=== PATIENT | male | born 1930 | race Caucasian/White ===

== ENCOUNTER 2017-02-16 11:33 | Inpatient (IN) ==
[2017-02-16] MEDS ORDERED: ACETAMINOPHEN 325 MG TABLET PO PRN (11:54)
[2017-02-16] MEDS ORDERED: traZODone 50 MG TABLET PO PRN (11:54)
[2017-02-16] MEDS ORDERED: DOCUSATE SODIUM 100 MG CAPSULE PO PRN (11:54)
--- NOTE | 2017-02-16 13:41 | Hospitalist History & Physical ---
Assessment and Plan (1) Coronary artery arteriosclerosis Status: Chronic Assessment and plan: Impression: 1. Possible congestive heart failure. Echocardiogram from the cardiology offices shows a normal ejection fraction and grade 2 diastolic dysfunction. It is possible that he is having an acute exacerbation of his chronic diastolic heart failure 2. Coronary disease, status post bypass grafting 3. Aortic valvular disease, status post bioprosthetic aortic valve replacement 4. Hypertension 5. Type II DM Plan: Screening lab and chest x-ray. Will consider revising diuretic dosing if the chest x-ray is compatible with CHF. Repeat cardiac catheterization and echocardiogram are probably not indicated, since he has had both of these tests less than 2 months ago. I discussed my findings and plan with the patient and his daughter. This note was completed using [employer] voice recognition software. There may be bit sharpener errors as a result. Current Visit: No History of Present Illness Chief complaint: Dyspnea of several days' duration History of present illness: Mr. Mcdonald is a 86 year old male He has a long history of hypertension and type II DM. He also has a long history of coronary disease. He underwent bypass grafting and aortic valve replacement with a bioprosthesis about 3-1/2 years ago. He has done well since then, but apparently had developed some worsening symptoms about 6 weeks ago. At that time, he underwent cardiac catheterization. He was found to have progression of his coronary disease, and occlusion of some of his bypass grafts. He was offered either redo bypass grafting or an attempt at stenting. He was quoted high risk numbers for both procedures, and chose medical management. For the past week or so, he said worsening exertional dyspnea as well as some occasional exertional chest discomfort. He has not had any nocturnal dyspnea. He has not had any nausea or vomiting. He has had a cough without any sputum production. His daughter noted a fever last night, but no fevers otherwise. The patient went to his local physician today. He was told that he might have some "fluid" in his chest, and was sent over to the hospital for further evaluation. Home Medications Medication Instructions Recorded Confirmed Type Amiodarone Tab [Cordarone Tab] 200 mg PO DAILY 05/06/15 02/16/17 History Amlodipine Besylate 1 tablet PO DAILY 05/06/15 02/16/17 History Aspirin Chew Tab 1 tablet PO DAILY 05/06/15 02/16/17 History Atorvastatin Calcium 40 mg PO DAILY 05/06/15 02/16/17 History Docusate Sodium Cap [Colace Cap] 100 mg PO BID 05/06/15 02/16/17 History Furosemide Tab [Lasix Tab] 80 mg PO BID DIURETIC 05/06/15 02/16/17 History Hydralazine HCl 25 mg PO BID 05/06/15 02/16/17 History Isosorbide Mononitrate [Imdur] 60 mg PO DAILY 05/06/15 02/16/17 History Levothyroxine Tab [Synthroid Tab] 100 mcg PO DAILY@0700 05/06/15 02/16/17 History Magnesium Oxide 400 mg PO BID 05/06/15 02/16/17 History Pantoprazole Tab [Protonix Tab] 40 mg PO DAILY 05/06/15 02/16/17 History glipiZIDE [Glucotrol] 10 mg PO BIDAC 05/06/15 02/16/17 History Insulin Glargine [Lantus] 15 unit SUBCUT BEDTIME 01/30/16 02/16/17 History Albuterol Inhaler [Proventil 2 puff INH Q6H PRN #1 inhaler 10/15/16 02/16/17 Rx Inhaler] Clopidogrel Bisulfate [Clopidogrel] 75 mg PO DAILY 01/01/17 02/16/17 History Polyethylene Glycol Powder 17 gm PO DAILY 02/16/17 02/16/17 History [Miralax] Allergies Allergy/AdvReac Type Severity Reaction Status Date / Time No Known Allergies Allergy Verified 01/30/16 11:07 Medical,Surgical,& Family Hx - Medical History Cardio: History of: CAD, Hypertension, Valvular Heart Disease (replacement) Endocrine: History of: Diabetes Mellitus (IDDM) Renal: History of: Renal Problems (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) - Surgical History Cardiac Surgeries: Sugical HX of: Cardiac Catheterization, Cardiac Surgery ( CABG Valve Replacement) Neurologic Surgeries: Patient denies: Neurologic Surgery Abdominal Surgeries: Surgical HX of: Appendectomy, Cholecystectomy - Family History Family History: Reports;: Family Diabetes, Family Heart Disease - Social History Smoking Status: Never smoker Frequency of Alcohol Use: None Type of Drug Use: None 12 point system: reviewed and no additional remarkable complaints except as stated Review of systems: Gen.: No weight loss or gain over the past year. Eyes: No glaucoma. No change in visual acuity. Ears nose and throat: No change in auditory acuity, sinus problems, nasal allergies, or sore throat. Lungs: No asthma, bronchitis, or pneumonia. Cardiac: See history of present on. GI: No liver disease, nausea, vomiting, or diarrhea. : No hematuria, UTI, or stones. He has chronic kidney disease per Neurologic: No seizures. Endocrine: Hypothyroid for several years.. Hematologic: No anemia or blood dyscrasias. Skin: No rashes or lesions. Musculoskeletal: Only age-related arthritic complaints. Exam - Constitutional Vitals: Period Temp Pulse Resp BP Sys/Lea Pulse Ox Last 24 Hr 97.5 F 50 20 116/42 91 General: He is a pleasant white man in no distress. HEENT: Pupils are round and reactive. Extraocular muscles are normal. Gaze is conjugate. Fundi were not examined. There is no nasal discharge. Mucous membranes are moist. Neck: Supple, without mass or bruit. He has neck vein distention supine. Cardiac: Rhythm is regular. The carotids are normal. He has a 3/6 systolic ejection murmur loudest at the right base and radiating into the neck. He also has a whiff of aortic regurgitation. Peripheral pulses are intact. Lungs: He has decreased breath sounds in both bases with rales in the right base. Abdomen: Soft and nontender. Bowel sounds are present. No mass palpable. Several well-healed scars Rectal: Not done. Extremities: No cyanosis, clubbing, or edema. Skin: No significant rash or lesion. Neurologic: He is awake and alert. He moves all 4 extremities. Cranial nerves appear to be intact. No pathologic reflexes are elicited.
[2017-02-16] MEDS ORDERED: ALBUTEROL 2.5 MG/3 ML NEB RESP TX PRN (13:46)
[2017-02-16] MEDS ORDERED: DEXTROSE 50% 25 GM/50 ML VIAL IV PRN (13:50)
[2017-02-16] MEDS ORDERED: GLUCAGON 1 MG VIAL IM PRN (13:50)
[2017-02-16 14:19] LABS: Basophils % 0.2 % (0.0-0.8); Hematocrit 36.7 VOL% (42.0-52.0); Hemoglobin 11.4 GM/DL (14.0-18.0); Immature Granulocytes % 0.5 %; Immature Granulocytes Absolute 0.05 #; Lymphocytes # 2.8 10*3/uL (1.4-4.0); Lymphocytes % 25.3 % (21.2-54.2); Mean Corpuscular HGB Conc 31.1 GM/DL (32-36); Mean Corpuscular Hemoglobin 28 PG (27-34); Mean Corpuscular Volume 90.4 FL (87-102); Mean Platelet Volume 11.5 FL (9.6-12.0); Monocytes # 0.7 10*3/uL (0.11-0.8); Monocytes % 5.9 % (1.7-12.7); Neutrophils # 7.6 10*3/uL (1.4-7.4); Neutrophils % 68.1 % (38.7-73.9); Platelet Count 155 T/CUMM (130-400); Red Blood Count 4.06 MC/CUMM (3.8-5.5); Red Cell Distribution Width 14.1 % (9.3-17.3); White Blood Count 11.1 T/CUMM (4-12)
[2017-02-16 14:54] LABS: Albumin 3.1 G/DL (3.4-5.0); Bilirubin,Total 0.7 MG/DL (0.2-1.0); Calcium 8.5 MG/DL (8.5-10.1); Magnesium 2.5 MG/DL (1.8-2.4); Osmolality,Calculated 294.4 MOS/KG (273-304); Potassium 4.3 MMOL/L (3.5-5.1); Risk Ratio 3.26; Thyroid Stimulating Hormone 1.95 uIU/ml (0.358-3.74); Total Protein 6.3 G/DL (6.4-8.3)
[2017-02-16 15:09] LABS: Apearance,Urine CLEAR (Clear); Bilirubin,Urine Negative (Negative); Blood, Urine Negative (Negative); Glucose,Urine (UA) Negative (Negative); Hyaline Casts,Urine 5 /LPF (0-3); Ketones,Urine Negative (Negative); Mucus,Urine Occasional /LPF (Occasional); Nitrite,Urine Negative (Negative); Protein,Urine Negative; RBC,Urine <1 /HPF (0-4); Urine Color Yellow (Yellow); Urine Specific Gravity 1.016 (1.001-1.035); Urine Urobilinogen < 2.0 EU/DL (0.2-1.0); WBC,Urine <1 /HPF (0-6)
--- NOTE | 2017-02-16 15:45 | XRay Report ---
Exam: Chest 2 views Date: February 16, 2017 at 3:23 PM Comparison: Chest one view portable January 02, 2017 Reason: Dyspnea/shortness of breath Findings: The cardiac silhouette is again enlarged, and the patient is status post sternotomy with valve replacement. There is persistent elevation of the left hemidiaphragm and air within the splenic flexure. Minimal atelectasis is seen at the left lung base, and there is chronic blunting of the left costophrenic angle. Emphysema is also suspected, and there may be minimal atelectasis within the right midlung zone. No pneumothorax is identified. The osseous structures appear stable. Impression: 1. Cardiomegaly. 2. There is persistent elevation of the left hemidiaphragm and minimal atelectasis at the left lung base. There is also chronic blunting of the left costophrenic angle, and emphysema is suspected. There may be minimal atelectasis within the right midlung zone. PROCEDURE INTERPRETED AT [facility] DEPARTMENT OF RADIOLOGY Final Report Signed by: Dr. Mj Farias
[2017-02-16] MEDS ORDERED: FUROSEMIDE 80 MG TABLET PO SCH (16:00)
[2017-02-16] MEDS: INSULIN REGULAR 100 UNIT/ML SUBCUT SCH ×2 (16:33→21:39)
[2017-02-16] MEDS: glipiZIDE 10 MG TABLET PO SCH (16:34)
[2017-02-16] MEDS: FUROSEMIDE 40 MG/4 ML VIAL IV SCH (16:34)
[2017-02-16] MEDS: INSULIN GLARGINE 100 UNIT/ML SUBCUT SCH (21:39)
[2017-02-16] MEDS: DOCUSATE SODIUM 100 MG CAPSULE PO SCH (21:39)
[2017-02-16] MEDS: hydrALAZINE 25 MG TABLET PO SCH (21:39)
[2017-02-16] MEDS: MAGNESIUM OXIDE 400 MG TABLET PO SCH (21:39)
[2017-02-17] MEDS: LEVOTHYROXINE 100 MCG TABLET PO SCH (06:09)
[2017-02-17 06:53] LABS: Calcium 8.7 MG/DL (8.5-10.1); Potassium 3.7 MMOL/L (3.5-5.1)
[2017-02-17] MEDS: INSULIN REGULAR 100 UNIT/ML SUBCUT SCH ×4 (08:22→20:33)
[2017-02-17] MEDS ORDERED: FUROSEMIDE 100 MG/10 ML VIAL ONE (08:37)
[2017-02-17] MEDS: FUROSEMIDE 40 MG/4 ML VIAL IV SCH ×2 (09:14→16:54)
[2017-02-17] MEDS: CLOPIDOGREL 75 MG TABLET PO SCH (09:16)
[2017-02-17] MEDS: hydrALAZINE 25 MG TABLET PO SCH ×2 (09:16→20:33)
[2017-02-17] MEDS: PANTOPRAZOLE 40 MG TABLET PO SCH ×2 (09:16→09:20)
[2017-02-17] MEDS: ASPIRIN CHEW 81 MG TABLET PO SCH (09:16)
[2017-02-17] MEDS: ATORVASTATIN 40 MG TABLET PO SCH (09:16)
[2017-02-17] MEDS: ISOSORBIDE MONONITRATE 60 MG TABLET PO SCH (09:16)
[2017-02-17] MEDS: glipiZIDE 10 MG TABLET PO SCH ×2 (09:16→16:54)
[2017-02-17] MEDS: amLODIPine 10 MG TABLET PO SCH (09:17)
[2017-02-17] MEDS: DOCUSATE SODIUM 100 MG CAPSULE PO SCH ×2 (09:17→20:33)
[2017-02-17] MEDS: POLYETHYLENE GLYCOL POWDER 17 GM PACK PO SCH (09:17)
[2017-02-17] MEDS: MAGNESIUM OXIDE 400 MG TABLET PO SCH ×2 (09:17→20:34)
--- NOTE | 2017-02-17 10:05 | Hospitalist Progress Note ---
Assessment and Plan (1) Coronary artery arteriosclerosis Status: Chronic Assessment and plan: Impression: 1. Acute on chronic diastolic congestive heart failure 2. Coronary disease, status post bypass grafting 3. Aortic valvular disease, status post bioprosthetic aortic valve replacement 4. Hypertension 5. Type II DM Plan: Continue diuresis. Recheck chest x-ray in the morning This note was completed using [employer] voice recognition software. There may be v/stol landing signal officer errors as a result. Current Visit: No Hospitalist: Subjective Interval history: Follow-up acute diastolic congestive heart failure. The patient says that his dyspnea has improved following the institution of IV diuretics. He requested a [place] catheter and we discussed the possibility of a catheter associated urinary infection. He is apparently taking his diuretics twice daily at home. His chest x-ray showed a little pulmonary vascular congestion, and his BNP was slightly elevated. He continues with orthopnea. Exam - Constitutional Vitals: Period Temp Pulse Resp BP Sys/Lea Pulse Ox Last 24 Hr 97.5 F-99.3 F 50-74 20-21 116-167/42-67 90-99 Vital signs are noted above. Heart is regular with a 3/6 systolic ejection murmur and no gallop. Has a few rales in the chest. His lungs sound clearer than yesterday. Abdomen is soft and nontender. There is a millimeter of peripheral edema. He is awake and alert Results - Labs CBC & BMP: 02/16/17 13:59 02/17/17 05:49 Lab Results: I have reviewed the past 24 hour labs (Kidney function has improved )
[2017-02-17] MEDS: AMIODARONE 200 MG TABLET PO SCH (11:59)
[2017-02-17] MEDS: INSULIN GLARGINE 100 UNIT/ML SUBCUT SCH (20:33)
[2017-02-18] MEDS: LEVOTHYROXINE 100 MCG TABLET PO SCH (05:59)
[2017-02-18 07:30] LABS: Calcium 8.1 MG/DL (8.5-10.1); Osmolality,Calculated 293.7 MOS/KG (273-304); Potassium 3.9 MMOL/L (3.5-5.1)
[2017-02-18] MEDS: ATORVASTATIN 40 MG TABLET PO SCH (08:44)
[2017-02-18] MEDS: FUROSEMIDE 40 MG/4 ML VIAL IV SCH ×2 (08:44→17:11)
[2017-02-18] MEDS: amLODIPine 10 MG TABLET PO SCH (08:45)
[2017-02-18] MEDS: CLOPIDOGREL 75 MG TABLET PO SCH (08:45)
[2017-02-18] MEDS: ASPIRIN CHEW 81 MG TABLET PO SCH (08:45)
[2017-02-18] MEDS: hydrALAZINE 25 MG TABLET PO SCH ×2 (08:45→20:51)
[2017-02-18] MEDS: DOCUSATE SODIUM 100 MG CAPSULE PO SCH ×2 (08:45→20:51)
[2017-02-18] MEDS: ISOSORBIDE MONONITRATE 60 MG TABLET PO SCH (08:45)
[2017-02-18] MEDS: AMIODARONE 200 MG TABLET PO SCH (08:45)
[2017-02-18] MEDS: INSULIN REGULAR 100 UNIT/ML SUBCUT SCH ×4 (08:46→20:52)
[2017-02-18] MEDS: glipiZIDE 10 MG TABLET PO SCH ×2 (08:46→17:11)
[2017-02-18] MEDS: MAGNESIUM OXIDE 400 MG TABLET PO SCH ×2 (08:47→20:52)
[2017-02-18] MEDS: PANTOPRAZOLE 40 MG TABLET PO SCH ×2 (08:47→08:48)
[2017-02-18] MEDS: POLYETHYLENE GLYCOL POWDER 17 GM PACK PO SCH (08:48)
--- NOTE | 2017-02-18 10:31 | XRay Report ---
Exam: Chest 2 views Date: February 18, 2017 at 7:01 AM Comparison: Chest 2 views February 16, 2017 Reason: Cough Findings: The cardiac silhouette is again enlarged, and the patient is status post sternotomy with valve replacement. There is persistent mild elevation of the left hemidiaphragm, and emphysema is suspected. There are minimal scattered opacities within both lower lung zones. This likely represents atelectasis. No pneumothorax is identified, but there is minimal bilateral pleural fluid. The osseous structures appear stable. Impression: There is minimal right pleural fluid today. The study is otherwise similar to before. PROCEDURE INTERPRETED AT [facility] DEPARTMENT OF RADIOLOGY Final Report Signed by: Dr. Mj Farias
--- NOTE | 2017-02-18 11:23 | Hospitalist Progress Note ---
Assessment and Plan (1) Coronary artery arteriosclerosis Status: Chronic Assessment and plan: Impression: 1. Acute on chronic diastolic congestive heart failure 2. Coronary disease, status post bypass grafting 3. Aortic valvular disease, status post bioprosthetic aortic valve replacement 4. Hypertension 5. Type II DM Plan: Continue diuresis. Recheck lab in the morning. This note was completed using [employer] voice recognition software. There may be agile business analyst errors as a result. Current Visit: No Hospitalist: Subjective Interval history: Follow-up acute on chronic diastolic congestive heart failure, aortic valve disease, type II DM, and coronary disease. The patient thinks that his dyspnea may be a little better. He says that he is not urinating as much after a couple of days of IV Lasix. He complains of not being able to sleep, but this is primarily due to the fact that the hospital bed is not comfortable for him. I reviewed his chest x-rays and old chest CT with radiology. He does not have any evidence of interstitial lung disease either on his chest x-rays or on the CT from 2 years ago. The chest x-rays show pleural fluid, and some reticular pattern suggestive of vascular congestion. He also has significant emphysema in the upper half of both lung campbell on the plain films and the old CT. Exam - Constitutional Vitals: Period Temp Pulse Resp BP Sys/Lea Pulse Ox Last 24 Hr 97.2 F-98.4 F 55-68 18-20 101-122/47-60 92-97 Vital signs are noted above. Heart is regular with a 2/6 systolic ejection murmur. He has a few scattered rales in both lung bases. There are no wheezes. Abdomen is soft with no mass or tenderness. He does not have peripheral edema. He is awake and alert. Results - Labs CBC & BMP: 02/16/17 13:59 02/18/17 05:02 Lab Results: I have reviewed the past 24 hour labs (Kidney function is stable)
[2017-02-18] MEDS: INSULIN GLARGINE 100 UNIT/ML SUBCUT SCH (20:51)
[2017-02-19] MEDS: LEVOTHYROXINE 100 MCG TABLET PO SCH (06:04)
[2017-02-19 07:12] LABS: Calcium 8.4 MG/DL (8.5-10.1); Osmolality,Calculated 297.7 MOS/KG (273-304); Potassium 4.5 MMOL/L (3.5-5.1)
--- NOTE | 2017-02-19 07:44 | Physician Query Form ---
CLICK EDIT DOCUMENT TO SELECT QUERY ANSWER --> OK --> SIGN Alice Simon RN, CCDS Certified Clinical Appraiser [employer] W) [phone] (f) [phone] [email or web address] PROVIDERS: Make your selection(s) from the choices in EACH section by typing an "x" and enter comments in the comment section. Please use your independent medical judgment in providing your response. This request does not imply that any particular answer is desired or expected. CLINICAL INDICATORS: (Providers should not edit this section) The medical record indicates that the patient was admitted with CHF, creatinine of 2.30 on the admission that is 2.20 on the 8th, GFR of 30 on admission that is 32 on the 8th, and the patient is on Lasix for the CHF. Clarify which of the following most accurately represents the patient's renal status: ( ) Acute kidney injury (non-traumatic) ( ) Acute renal failure ( ) Acute renal failure with underlying Chronic Kidney Disease (CKD) - please provide stage below ( ) Acute renal failure with pathological renal lesion ( ) Acute renal failure with necrosis ( ) tubular ( ) medullary ( ) cortical (x ) CKD - please provide stage below ( ) End Stage Renal Disease ( ) Acute interstitial nephritis ( ) Hepatorenal syndrome ( ) Other, please specify: ( ) Clinically unable to determine Chronic Kidney Disease Stages Source: National Kidney Disease Foundation ( ) Stage I (eGFR > or = 90) ( ) Stage II (eGFR 60 - 89) (x) Stage III (eGFR 30 - 59) ( ) Stage IV (eGFR 15 - 29) ( ) Stage V (eGFR < 15 or dialysis) COMMENTS: Use of terms such as suspected, likely, or probable (associated with a specific diagnosis that is being evaluated, monitored, or treated as if it exists) are acceptable and can be restated in the discharge summary if not ruled out. MTDD
[2017-02-19] MEDS: glipiZIDE 10 MG TABLET PO SCH (07:51)
[2017-02-19] MEDS: FUROSEMIDE 40 MG/4 ML VIAL IV SCH (07:52)
[2017-02-19] MEDS: POLYETHYLENE GLYCOL POWDER 17 GM PACK PO SCH (07:59)
[2017-02-19] MEDS: amLODIPine 10 MG TABLET PO SCH (08:00)
[2017-02-19] MEDS: ISOSORBIDE MONONITRATE 60 MG TABLET PO SCH (08:00)
[2017-02-19] MEDS: hydrALAZINE 25 MG TABLET PO SCH (08:00)
[2017-02-19] MEDS: PANTOPRAZOLE 40 MG TABLET PO SCH (08:00)
[2017-02-19] MEDS: AMIODARONE 200 MG TABLET PO SCH (08:00)
[2017-02-19] MEDS: CLOPIDOGREL 75 MG TABLET PO SCH (08:02)
[2017-02-19] MEDS: MAGNESIUM OXIDE 400 MG TABLET PO SCH (08:02)
[2017-02-19] MEDS: ATORVASTATIN 40 MG TABLET PO SCH (08:02)
[2017-02-19] MEDS: DOCUSATE SODIUM 100 MG CAPSULE PO SCH (08:02)
[2017-02-19] MEDS: ASPIRIN CHEW 81 MG TABLET PO SCH (08:02)
[2017-02-19] MEDS: INSULIN REGULAR 100 UNIT/ML SUBCUT SCH ×2 (09:09→11:46)
[2017-02-19 12:18] VITALS: BP 102/59
--- NOTE | 2017-02-19 14:16 | Discharge Summary ---
Hospital Course - Hospital Course Hospital Course: Mr. Mcdonald was admitted for management of acute exacerbation of congestive heart failure. He was initiated on furosemide 80 mg IV twice daily. Serial chest x-rays revealed improving exam. Patient improved on this treatment and return to baseline. By discharge he had met maximum benefit of hospitalization. I spent 36 minutes coordinating this discharge. I advised the patient to follow-up with his circular knitter and switching operator at discharge. - Time spent with patient Time with patient DS: Greater than 30 minutes Discharge Plan - Discharge Data Disposition: Disch To Home/Self Care Condition at Discharge: Stable Discharge Diet: advance to your usual diet Activity: resume usual activities as tolerated Hygiene: no restrictions - Discharge Medications Continue Hydralazine HCl 25 mg PO BID Docusate Sodium Cap [Colace Cap] 100 mg PO BID Amiodarone Tab [Cordarone Tab] 200 mg PO DAILY glipiZIDE [Glucotrol] 10 mg PO BIDAC Furosemide Tab [Lasix Tab] 80 mg PO BID DIURETIC Magnesium Oxide 400 mg PO BID Atorvastatin Calcium 40 mg PO DAILY Isosorbide Mononitrate [Imdur] 60 mg PO DAILY Amlodipine Besylate 1 tablet PO DAILY Pantoprazole Tab [Protonix Tab] 40 mg PO DAILY Levothyroxine Tab [Synthroid Tab] 100 mcg PO DAILY@0700 Aspirin Chew Tab 1 tablet PO DAILY Insulin Glargine [Lantus] 15 unit SUBCUT BEDTIME Albuterol Inhaler [Proventil Inhaler] 2 puff INH Q6H PRN #1 inhaler PRN Reason: Shortness Of Breath/Wheezing Clopidogrel Bisulfate [Clopidogrel] 75 mg PO DAILY Polyethylene Glycol Powder [Miralax] 17 gm PO DAILY - Follow Up or Referral Follow Up: Xiomara Ceballos DO [Primary Care Provider] - 1 Week Will Verde MD [Physician] - 1 Month - Forms/Instructions Exam - Constitutional Vitals: Period Temp Pulse Resp BP Sys/Lea Pulse Ox Last 24 Hr 97.0 F-98.5 F 51-65 18-20 102-125/38-60 90-100 General appearance: normal weight, no acute distress - Head Head exam: Present: normal inspection, normocephalic, atraumatic - Eye Eye exam: Present: EOMI Pupils: Present: MILAGROS - ENT ENT exam: Present: normal exam - Neck Neck exam: Present: normal inspection - Respiratory Respiratory exam: Present: clear to auscultation bilaterally. Absent: accessory muscle use, prolonged expiratory phase, wheezes - Cardiovascular Cardiovascular exam: Present: regular rate and rhythm. Absent: bradycardia, irregular rhythm, systolic murmur - GI/Abdominal GI/Abdominal exam: Present: normal bowel sounds. Absent: ascites, distended, hypoactive bowel sounds, tenderness - Extremities Exam Extremities exam: Present: normal inspection, edema (trace edema lower extremities bilaterally) Discharge Results Labs on day of discharge: Labs from last 24 hours 02/19/17 02/19/17 02/19/17 10:48 07:14 04:45 Sodium 145 Potassium 4.5 Chloride 104 Carbon Dioxide 33 H Anion Gap 12.5 BUN 41 H Creatinine 2.20 H GFR Calculation 32 BUN/Creatinine Ratio 18.00 Glucose 91 POC Glucose 182 H 64 L Calculated Osmolality 297.7 Calcium 8.4 L 02/18/17 02/18/17 02/17/17 20:09 18:09 16:08 Sodium Potassium Chloride Carbon Dioxide Anion Gap BUN Creatinine GFR Calculation BUN/Creatinine Ratio Glucose POC Glucose 177 H 103 181 H Calculated Osmolality Calcium DS: Provider Date of admission: 02/16/17 12:03 Primary care physician: Xiomara Ceballos DO Attending physician on admission: Avery Edwards MD Consults: 02/16/17 12:57 Consult to Pastoral Services [CONS] Routine Comment: Pastoral Screen: Request Seamless Tube Mill Operator Visit Pastoral Screen Source of Request: Patient 02/16/17 15:34 Consult to Pharmacy [CONS] Routine Reason for Pharmacy Consult: Adjust Meds Renal Funct Discharging clinician: Gena Tineo MD Expected date of discharge: 02/19/17
== END 2017-02-19 15:35 | disposition home or self-care (01) | DRG 291 ==
LOC: N.2E 12:03 → SUATTDRO 12:03
PROVIDERS: ADMIT Internal Medicine Geriatric Medicine; ATTEND Internal Medicine

== ENCOUNTER 2017-03-02 07:52 | Inpatient (IN) ==
[2017-03-02] MEDS ORDERED: SODIUM BICARB INJ 50 MEQ in SODIUM CHLORIDE 0.45% 1,000 ML IV SCH (09:00)
[2017-03-02 09:46] LABS: Calcium 8.4 MG/DL (8.5-10.1); Osmolality,Calculated 296.3 MOS/KG (273-304); Potassium 4.4 MMOL/L (3.5-5.1)
--- NOTE | 2017-03-02 09:51 | EKG Report ---
Stationary ECG Study [facility] Test Date: 03/02/2017 9:51:23 AM Pat Name: SHARRI PETIT Department: Room: Gender: M Prize Coordinator: : [id number] Requested by: Christina Kimble Order Number: [id number] Reading MD: TONY CALDERA Intervals Placida Rate: 47 P: 999 OK: 99 QRS: 73 QRSD: 104 T: 120 QT: 314 QTc: 279 Interpretive Statements SINUS BRADYCARDIA Electronically Signed On 03-02-17 17:28:11 CDT by TONY CALDERA [email or web address]
[2017-03-02 10:08] LABS: Basophils # 0.1 10*3/uL (0.0-0.2); Basophils % 0.5 % (0.0-0.8); Eosinophils # 0.1 10*3/uL (0.0-0.87); Eosinophils % 0.8 % (0.00-10.9); Hematocrit 33.8 VOL% (42.0-52.0); Hemoglobin 10.7 GM/DL (14.0-18.0); Immature Granulocytes % 0.3 %; Immature Granulocytes Absolute 0.03 #; Lymphocytes # 2.9 10*3/uL (1.4-4.0); Lymphocytes % 29.4 % (21.2-54.2); Mean Corpuscular HGB Conc 31.7 GM/DL (32-36); Mean Corpuscular Hemoglobin 28 PG (27-34); Mean Corpuscular Volume 88.7 FL (87-102); Mean Platelet Volume 10.1 FL (9.6-12.0); Monocytes # 0.6 10*3/uL (0.11-0.8); Monocytes % 6.4 % (1.7-12.7); Neutrophils # 6.2 10*3/uL (1.4-7.4); Neutrophils % 62.6 % (38.7-73.9); Platelet Count 270 T/CUMM (130-400); Red Blood Count 3.81 MC/CUMM (3.8-5.5); White Blood Count 9.9 T/CUMM (4-12)
[2017-03-02] MEDS ORDERED: DIAZEPAM 5 MG TABLET PO ONE (12:00)
[2017-03-02] MEDS ORDERED: SODIUM ACETATE IV SCH (12:00)
[2017-03-02] MEDS ORDERED: diphenhydrAMINE CAP 25 MG CAPSULE PO ONE (12:00)
[2017-03-02] MEDS ORDERED: SODIUM CHLORIDE 0.9% IV SCH (12:00)
--- NOTE | 2017-03-02 12:36 | History and Physical Update ---
Sedation H&P Update - History and Physical H&P was reviewed, the patient examined and there: are no changes in the patients condition since last H&P was completed. - Dictation Physical: refer to scanned H&P - Physical Exam Mental Status: alert and oriented Heart: regular rate and rhythm Lung: clear to auscultation Abdomen: within normal limits Vitals: within normal limits - Sedation Plan for Sedation: moderate Patient Consent: Procedure disscussed with patient and patinet has consented., Risks and benefits were discussed with patient,including infection,, bleeding, injury to surrounding structures, seizure, temporary nerve, Patient understands and accepts potential risks/benefits and agrees to, proceed. ASA Class: IV Airway Assessment: Class II: Soft palate, uvula, fauces visible
[2017-03-02] MEDS ORDERED: HEPARIN 5,000 UNIT/1 ML VIAL ONE ×4 (14:11→17:26)
[2017-03-02] MEDS ORDERED: HEPARIN/NACL 0.9% 2 UNITS/ML 1,000 ML IV ONE (14:11)
[2017-03-02] MEDS ORDERED: LIDOCAINE 1% 20 ML VIAL ONE (14:11)
[2017-03-02] MEDS ORDERED: DIAZEPAM 5 MG TABLET ONE (14:31)
[2017-03-02] MEDS ORDERED: diphenhydrAMINE CAP 25 MG CAPSULE ONE (14:31)
[2017-03-02] MEDS ORDERED: HEPARIN/NACL 0.9% 2 UNITS/ML 500 ML IV ONE ×3 (14:32→16:56)
[2017-03-02] MEDS: SODIUM CHLORIDE 0.45% 1,000 ML IV SCH (14:33)
[2017-03-02] MEDS ORDERED: fentaNYL 100 MCG/2 ML VIAL ONE (14:42)
[2017-03-02] MEDS ORDERED: MIDAZOLAM 2 MG/2 ML VIAL ONE ×3 (14:42→17:16)
[2017-03-02] MEDS ORDERED: NITROGLYCERIN DRIP 50 MG/250 ML BOTTLE IV ONE (16:29)
[2017-03-02] MEDS ORDERED: CLOPIDOGREL 300 MG TABLET ONE (17:48)
[2017-03-02] MEDS ORDERED: ceFAZolin 1,000 MG VIAL ONE (17:49)
[2017-03-02] MEDS ORDERED: FUROSEMIDE 40 MG/4 ML VIAL ONE (17:58)
[2017-03-02] MEDS ORDERED: ACETAMINOPHEN 325 MG TABLET PO PRN (17:59)
[2017-03-02] MEDS ORDERED: FUROSEMIDE 40 MG/4 ML VIAL IV ONE (17:59)
[2017-03-02] MEDS ORDERED: MORPHINE 2 MG/1 ML SYRINGE IV PRN (17:59)
[2017-03-02] MEDS ORDERED: CLOPIDOGREL 300 MG TABLET PO ONE (17:59)
[2017-03-02] MEDS ORDERED: NITROGLYCERIN SL 0.4 MG TABLET SL PRN (18:04)
[2017-03-02] MEDS ORDERED: ALBUTEROL 0.63 MG/3 ML NEB RESP TX PRN (18:08)
--- NOTE | 2017-03-02 18:19 | Cardiac Catheterization ---
Date of Procedure:: 03/02/17 Pre-op Diagnosis: Critical left main, ostial and mid LAD, ostial ramus intermedius and ostial left circumflex and mid left circumflex stenoses ( declined for coronary bypass grafting because of STS risk). Planned facilitated PCI with orbital atherectomy. Post-op diagnosis: same (Successful PCI of the left main, ostial LAD, proximal LAD, ostial ramus intermedius, ostial left circumflex and mid left circumflex O (tandem lesions) Procedure: Procedures: 1. Right heart catheterization with resting hemodynamics 2. Left heart catheterization with resting hemodynamics 3. Right femoral iliac angiography 4. Left femoral iliac angiography 5. Orbital atherectomy of the left main, left anterior descending artery, and left circumflex coronary artery 6. Temporary pacemaker placement both placement and removal 7. Facilitated PCI with Impella ventricular support both placement and removal 8. Percutaneous coronary intervention with drug-eluting stents of the proximal and LAD and percutaneous coronary mention of the ostial LAD 9. Percutaneous coronary intervention of the ostial ramus intermedius with drug -eluting stent 10. Percutaneous coronary mention of the ostial and proximal left circumflex with drug-eluting stent 11. Closure of large bore left femoral artery with Perclose in the pre-close fashion 12. Closure right femoral arteriotomy with large bore Angio-Seal closure device After signed informed consent was taken from the patient and his daughter and extensive lengthy discussion both in the hospital in the office and again in admission the patient was preadmitted for his renal insufficiency and hydration with facilitated angioplasty high risk of these vessels as described above. He was placed on the cardiac catheterization table. Dr. Ra Bangura was present for the entire procedure assisting me as spiral machine operator in this procedure. He was present for the entire procedure for technical assistance and decision making. The patient was placed on a cardiac catheterization table and prior prep for bilateral femoral access. Modified Seldinger technique was utilized to access the right femoral artery a small skin incision was made 8 St Helenian sheath was placed over the wire the sheath was aspirated and flushed at this time Seldinger technique was utilized to obtain access to the right femoral vein 7 St Helenian sheath was placed over the wire the sheath was aspirated and flushed. At this time a JR4 diagnostic catheter was advanced to the central aorta and pullback for selective cannulization of the left iliac artery. Left more iliac angiography performed for landmarks and access verification for large-bore access to the left femoral artery. Modified Seldinger technique was utilized to obtain access to the right femoral artery and a long 035 J-wire was advanced in the central aorta under fluoroscopy. At this time in the pre-close technique to Perclose devices were deployed 90 juxtaposed each other. At this time sequential dilation was performed of the vessel and a long Cook sheath (14 St Helenian) was placed over the stiff 035 J-wire. While waiting for the ACT to be verified a right heart cath was performed with wedge pressure RV and RA and PA pressure meds as below. At this time unsuccessfully and AL-1 was advanced and attempts to cross the aortic valve were unsuccessful. It was exchanged for the previously used JR4 catheter and using exchange length straight tip wire the valve was crossed. Catheter was removed wire was left in the ventricle and the pigtail catheter was advanced to the apex. The patient experienced a significant amount of ectopy. Pressure measurements were performed. At this time the stiff 0.018 Impella wire was advanced to the apex the pigtail catheter was removed and the Impella CP device was placed at the apex monitoring in standard fashion and initiation of the device occurred. 8000 units of heparin had been given once all access is been obtained before the Impala was advanced to document that the ACT was greater than 250. A CTs were checked periodically throughout the case and different boluses of heparin heparin were given please see the Log for details. The patient was stable the Impala device was pumping approximately 2.1 L/min and very stable. At this time an EBU 3.58 St Helenian guiding catheter advanced over the wire and central aorta the left main coronary was selectively engaged in to set up images were obtained. Special attention was given for contrast conservation because of renal insufficiency. At this time an exchange length pro-water wire was advanced into the distal LAD then was exchanged using a Turnpike catheter for the Viper wire. Once the via the wire was in place the CSI orbital atherectomy device was used to make multiple passes in the left main ostial and proximal LAD. There was dramatic improvement in flow to this vessel. The viper wire and CSI device were removed. At this time attention was turned to the left circumflex the previously use exchange length pro-water wire was advanced into the distal left circumflex and then changed out using the Turnpike catheter for the previously used Viper wire. Before the dominant left circumflex had orbital atherectomy a temporary transvenous pacemaker was placed. Multiple passes in the LAD left main proximal left circumflex and mid left circumflex were performed at low speed. At no time was high-speed orbital atherectomy used. There was a small dissection in the proximal left circumflex. The CSI device was removed the wire was left in place and using the Turnpike catheter the Viper wire was again exchanged for the long pro- water. At this time a short pro-water wire was advanced into the distal LAD and a [place] Blue wire was advanced into the distal ramus intermedius. Once all 3 vessels were accessed with these 3 wires attention was turned to percutaneous intervention and stent placement. A 2.5 x 12 mm [place] balloon was used to inflate the lesion in the mid LAD it was removed and then this area was just ended with a 3.0 x 15 mm Xience Alpine stent. It was postdilated to 12 teodora with a 3 oh by 12 NC Quantum apex. The balloon was removed. Attention was then turned to the left circumflex. The previously used 2.5 x 12 mm [place] balloon was used to make 3 inflations in the ostial and proximal left circumflex. Multiple attempts to pass a 2.5 x 33 mm Xience Alpine were unsuccessful. The area in the mid left circumflex was again aggressively dilated and ultimately the stent passed with ease. It was deployed at 10 teodora. The stent balloon was removed. Attention was turned to the ramus intermedius and the LAD ostia. A SKS technique to 2.5 x 15 mm Xience Alpine drug-eluting stents were deployed in the ostia of each of these vessels reaching the left main vault. The stent balloon was removed and both vessels were then postdilated to 12 teodora with comparable NC balloons. The NC balloons were removed at this time a Xience Alpine 4.0 x 8 mm stent was advanced over the she on blue wire that was in the ramus intermedius. Both the left circumflex and LAD wires were removed. The stent was then placed near the ostium of the leg all stents leaving a small area uncovered. This trouser technique was felt to be the best given the morphology of the trifurcating lesion. The stent was deployed appear to have excellent size with good coverage of the ostium of the LAD and some stent hanging back into the aorta. The decision was made not to post dilate this because of the significant upturn in size. Again for contrast conservation limited images were obtained however to additional images without the wires were obtained to verify no apparent distal vessel complication. The Impala device was weaned rapidly the temporary transvenous pacemaker was removed from the right ventricle and the EBU guide was exchanged over the wire the sheath was aspirated and flushed. Right femoral iliac angiography performed appear to be amenable for closure. Once we were below P2 on the Impala device the device was removed. Manual compression was used and the 2 previously placed Perclose devices were used to close the arteriotomy successfully with good hemostasis. At this time the previously used JR4 was advanced over the wire to the bifurcation aorta and the left femoral iliac angiography were performed show good hemostasis and ALEXSANDER-3 flow in the vessel. This catheter was removed the sheath was aspirated and flushed and 8 St Helenian Angio-Seal was deployed in the right femoral artery. Manual compression was used for hemostasis of the vein. The patient had received Versed and fentanyl he tolerated the procedure extremely well. Because he did reach and grab the Impella at one point during the case and the sutures were potentially contaminated he received 1 g of IV Ancef. The patient also received an additional 300 mg of clopidogrel on the background of his 75 mg daily. Total diagnostic fluoroscopy time 36.55 minutes total diagnostic fluoroscopy dose 2.5 mg total contrast exposure 150 cc of Visipaque Findings: RA pressure 24/25 PA pressure 53/25 with a mean of 34 Pulmonary capillary wedge pressure 29 Aortic pressure 147/54 LV pressure 147/16 with a end-diastolic pressure of 27 Left main this is a very heavily calcified diffusely diseased left main that is much as 80% in the distal portion involvement of the trifurcating vessels. It has ALEXSANDER II flow. Left anterior descending artery: There is ostial 90 sent with ALEXSANDER II flow pre- and ALEXSANDER-3 flow post there is a proximal very eccentric area with heavily ectasia afterwards has 90% ALEXSANDER II flow pre-and ALEXSANDER-3 flow was 0% stenosis post Ramus intermedius is a large vessel that supplies a large portion of the lateral ventricular myocardium has 80% ostial stenosis with ALEXSANDER II flow pre- PCI and ALEXSANDER-3 flow post PCI with 0% residual stenosis. The left circumflex is a dominant vessel supplying left PDA. Has ostial 90% stenosis it is very eccentric and ectatic there is 20% residual stenosis with a very small area unprotected at the ostium likely at the time of stenting with approximately 20% stenosis and ALEXSANDER-3 flow. There is a mid tandem lesions that are approximately 90% had ALEXSANDER II flow pre-and 0% residual stenosis and ALEXSANDER-3 flow post PCI Right femoral iliac arteries are tortuous but free of any significant disease Left femoral iliac arteries are slightly tortuous less so than the right but free of any significant disease. Post pre-close they are widely patent and no angiographic evidence of extravasation of contrast or significant stenosis. Assessment: 1. Triple-vessel coronary disease as described above status post adequate vascular revascularization 2. 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 Chronic renal insufficiency 5. Advanced age 6. Many other medical problems as described in the H&P (diabetes, renal insufficiency, hypothyroidism, COPD atrial flutter) Plan: 1. Monitor closely in the ICU 2. Continue gentle IV hydration the patient was wheezing slightly at the end of the case we will give some IV diuretics and place a Colindres catheter 3. Monitor closely for complications. There is significant amount of potential complications that are still possible in this high-risk patient Implants: The following Xience Alpine stents were deployed: 1. Mid LAD 3.0 x 15 mm 2. Ostial proximal and mid left circumflex 2.5 x 33 mm 3. Ostial and proximal LAD 2.5 x 15 mm 4. Ostial and proximal ramus intermedius 2.5 x 15 mm 5. Left main coronary artery 4.0 x 8 mm Anesthesia: moderate conscious sedation Surgeon / Physician: Xiomara Ceballos [employer] Skills: none Estimated blood loss: minimal Specimens: none sent Condition: other (Guarded) Disposition: ICU/CCU - Medications / Follow-up
[2017-03-02 19:38] LABS: Apearance,Urine CLEAR (Clear); Bilirubin,Urine Negative (Negative); Blood, Urine Negative (Negative); Glucose,Urine (UA) Negative (Negative); Ketones,Urine Negative (Negative); Mucus,Urine Occasional /LPF (Occasional); Nitrite,Urine Negative (Negative); Protein,Urine Negative; RBC,Urine <1 /HPF (0-4); Urine Color Straw (Yellow); Urine Specific Gravity 1.005 (1.001-1.035); Urine Urobilinogen < 2.0 EU/DL (0.2-1.0); WBC,Urine <1 /HPF (0-6)
[2017-03-02] MEDS: hydrALAZINE 25 MG TABLET PO SCH (20:08)
[2017-03-02] MEDS: MAGNESIUM OXIDE 400 MG TABLET PO SCH ×2 (20:37→20:43)
[2017-03-02] MEDS: DOCUSATE SODIUM 100 MG CAPSULE PO SCH (20:37)
[2017-03-02] MEDS: FAMOTIDINE 20 MG TABLET PO SCH (20:37)
[2017-03-03 05:39] LABS: Basophils # 0.1 10*3/uL (0.0-0.2); Basophils % 0.4 % (0.0-0.8); Eosinophils # 0.1 10*3/uL (0.0-0.87); Eosinophils % 0.7 % (0.00-10.9); Hematocrit 32.1 VOL% (42.0-52.0); Immature Granulocytes % 0.3 %; Immature Granulocytes Absolute 0.04 #; Lymphocytes # 2.7 10*3/uL (1.4-4.0); Lymphocytes % 23.2 % (21.2-54.2); Mean Corpuscular HGB Conc 31.2 GM/DL (32-36); Mean Corpuscular Hemoglobin 28 PG (27-34); Mean Corpuscular Volume 88.2 FL (87-102); Monocytes # 0.6 10*3/uL (0.11-0.8); Monocytes % 5.4 % (1.7-12.7); Neutrophils # 8.2 10*3/uL (1.4-7.4); Platelet Count 223 T/CUMM (130-400); Red Blood Count 3.64 MC/CUMM (3.8-5.5); Red Cell Distribution Width 13.8 % (9.3-17.3); White Blood Count 11.8 T/CUMM (4-12)
[2017-03-03] MEDS: SODIUM CHLORIDE 0.45% 1,000 ML IV SCH (06:07)
[2017-03-03] MEDS: LEVOTHYROXINE 100 MCG TABLET PO SCH (06:07)
[2017-03-03 06:16] LABS: Calcium 7.9 MG/DL (8.5-10.1); Osmolality,Calculated 290.1 MOS/KG (273-304); Potassium 4.3 MMOL/L (3.5-5.1)
[2017-03-03 06:19] LABS: Troponin I Only 0.441 NG/ML (0.00-0.045)
--- NOTE | 2017-03-03 07:51 | EKG Report ---
Stationary ECG Study [facility] Test Date: 03/03/2017 7:50:37 AM Pat Name: SHARRI PETIT Department: Room: 123 Gender: M Reed Dipper: : 1930 Requested by: Christina Kimble Order Number: [id number] Marc MD: FELIPE CAMPO Intervals [place] Rate: 48 P: 999 RI: 0 QRS: 76 QRSD: 100 T: 180 QT: 253 QTc: 220 Interpretive Statements AFIB ABN ST-T UNCHANGED FROM PRIOR ECG BRADYCARDIA Electronically Signed On 03-03-17 08:44:45 CDT by FELIPE CAMPO [id number]
[2017-03-03] MEDS: glipiZIDE 10 MG TABLET PO SCH ×2 (08:31→17:22)
[2017-03-03] MEDS: DOCUSATE SODIUM 100 MG CAPSULE PO SCH ×2 (08:32→20:54)
[2017-03-03] MEDS: hydrALAZINE 25 MG TABLET PO SCH ×2 (08:32→20:56)
[2017-03-03] MEDS: FUROSEMIDE 80 MG TABLET PO SCH ×2 (08:32→17:22)
[2017-03-03] MEDS: amLODIPine 10 MG TABLET PO SCH (08:32)
[2017-03-03] MEDS: ASPIRIN EC 81 MG TABLET PO SCH (08:32)
[2017-03-03] MEDS: FAMOTIDINE 20 MG TABLET PO SCH (08:32)
[2017-03-03] MEDS: CLOPIDOGREL 75 MG TABLET PO SCH (08:32)
[2017-03-03] MEDS: MAGNESIUM OXIDE 400 MG TABLET PO SCH ×2 (08:33→20:56)
[2017-03-03] MEDS: POLYETHYLENE GLYCOL POWDER 17 GM PACK PO SCH (08:33)
--- NOTE | 2017-03-03 08:54 | Cardiology Progress Note ---
Assessment and Plan (1) Coronary artery arteriosclerosis Status: Chronic Assessment and plan: Patient is stable post complicated coronary intervention. He will be transferred to the floor hopefully to be discharged tomorrow. Current Visit: No (2) Hypertension Status: Chronic Current Visit: No Cardiology - PN: Subj Interval history: 86-year-old man who underwent complex percutaneous coronary intervention yesterday. He received stents to the proximal LAD, ostial LAD, ostial ramus and circumflex as well as a stent to the left main coronary artery. His creatinine is stable. He has had minimal ooze from the right groin. His left groin where the Impella was placed looks very good. He has got good pulses. Our plan is going to transfer him to the floor today and discharge him home probably tomorrow depending on how he progresses. Exam (Progress Note) - Constitutional Vitals: Period Temp Pulse Resp BP Sys/Lea Pulse Ox Last 24 Hr 96.0 F-97.1 F 47-58 12-23 112-150/41-78 89-98 Exam: General:no acute distress. alert and oriented, mood and affect are normal HEENT: no new lesions, sclerae are clear, mouth and pharynx benign Neck: supple, trachea midline, no JVD noted Lungs: no rales ronchi or wheeze is noted. pt comfortable without accesory muscle use to assist with breathing CV: RRR no murmur rub or gallop is noted. Abd: soft and nontender, BSNA, no masses. Ext: no cyanosis, clubbing or edema. Both groin intervention sites appear to be stable without hematoma. Peripheral pulses are good. Neuro: grossly intact without focal neurologic deficit. Result/EKG - Labs CBC & BMP: 03/03/17 05:09 03/03/17 05:09 Labs: Laboratory Results - last 24 hr 03/02/17 03/02/17 03/02/17 09:04 10:00 18:14 WBC 9.9 RBC 3.81 Hgb 10.7 L Hct 33.8 L MCV 88.7 MCH 28 MCHC 31.7 L RDW 14.0 Plt Count 270 MPV 10.1 Neut % (Auto) 62.6 Lymph % (Auto) 29.4 [place] % (Auto) 6.4 Eos % (Auto) 0.8 Baso % (Auto) 0.5 Neut # (Auto) 6.2 Lymph # (Auto) 2.9 [place] # (Auto) 0.6 Eos # (Auto) 0.1 Baso # (Auto) 0.1 Immature Gran % 0.3 Nucleated RBC % 0.0 Immature Gran # 0.03 Nucleated RBCs # 0.00 Sodium 141 Potassium 4.4 Chloride 104 Carbon Dioxide 31 Anion Gap 10.4 BUN 42 H Creatinine 2.40 H GFR Calculation 28 BUN/Creatinine Ratio 17.00 Glucose 189 H POC Glucose Calculated Osmolality 296.3 Calcium 8.4 L Magnesium 3.0 H Troponin I Urine Color Straw Urine Appearance Clear Urine pH 7.0 Ur Specific [place] 1.005 Urine Protein Negative Urine Glucose (UA) Negative Urine Ketones Negative Urine Blood Negative Urine Nitrate Negative Urine Bilirubin Negative Urine Urobilinogen < 2.0 H Urine Leukocytes Negative Urine RBC <1 Urine WBC <1 Urine Mucus Occasional Ur Culture Indicated? Not indicated 03/02/17 03/03/17 03/03/17 20:03 05:09 05:09 WBC 11.8 RBC 3.64 L Hgb 10.0 L Hct 32.1 L MCV 88.2 MCH 28 MCHC 31.2 L RDW 13.8 Plt Count 223 MPV 11.0 Neut % (Auto) 70.0 Lymph % (Auto) 23.2 [place] % (Auto) 5.4 Eos % (Auto) 0.7 Baso % (Auto) 0.4 Neut # (Auto) 8.2 H Lymph # (Auto) 2.7 [place] # (Auto) 0.6 Eos # (Auto) 0.1 Baso # (Auto) 0.1 Immature Gran % 0.3 Nucleated RBC % 0.0 Immature Gran # 0.04 Nucleated RBCs # 0.00 Sodium 142 Potassium 4.3 Chloride 105 Carbon Dioxide 28 Anion Gap 13.3 BUN 32 H D Creatinine 2.00 H GFR Calculation 36 BUN/Creatinine Ratio 16.00 Glucose 121 H POC Glucose 165 H Calculated Osmolality 290.1 Calcium 7.9 L Magnesium Troponin I 0.441 H Urine Color Urine Appearance Urine pH Ur Specific [place] Urine Protein Urine Glucose (UA) Urine Ketones Urine Blood Urine Nitrate Urine Bilirubin Urine Urobilinogen Urine Leukocytes Urine RBC Urine WBC Urine Mucus Ur Culture Indicated? 03/03/17 07:13 WBC RBC Hgb Hct MCV MCH MCHC RDW Plt Count MPV Neut % (Auto) Lymph % (Auto) [place] % (Auto) Eos % (Auto) Baso % (Auto) Neut # (Auto) Lymph # (Auto) [place] # (Auto) Eos # (Auto) Baso # (Auto) Immature Gran % Nucleated RBC % Immature Gran # Nucleated RBCs # Sodium Potassium Chloride Carbon Dioxide Anion Gap BUN Creatinine GFR Calculation BUN/Creatinine Ratio Glucose POC Glucose 153 H Calculated Osmolality Calcium Magnesium Troponin I Urine Color Urine Appearance Urine pH Ur Specific [place] Urine Protein Urine Glucose (UA) Urine Ketones Urine Blood Urine Nitrate Urine Bilirubin Urine Urobilinogen Urine Leukocytes Urine RBC Urine WBC Urine Mucus Ur Culture Indicated? - EKG EKG results: interpreted by me (EKG shows A. fib with bradycardia heart rate [address]-T change which is stable.) Quality Measures - VTE Contraindication to Pharmacological VTE Prophylaxis: High Risk of Bleeding
[2017-03-03] MEDS ORDERED: ATORVASTATIN 40 MG TABLET PO SCH ×2 (09:00→21:00)
[2017-03-04 04:29] LABS: Basophils % 0.4 % (0.0-0.8); Eosinophils # 0.2 10*3/uL (0.0-0.87); Eosinophils % 1.6 % (0.00-10.9); Hematocrit 30.2 VOL% (42.0-52.0); Hemoglobin 9.4 GM/DL (14.0-18.0); Immature Granulocytes % 0.3 %; Immature Granulocytes Absolute 0.03 #; Lymphocytes # 2.9 10*3/uL (1.4-4.0); Lymphocytes % 29.4 % (21.2-54.2); Mean Corpuscular HGB Conc 31.1 GM/DL (32-36); Mean Corpuscular Hemoglobin 27 PG (27-34); Mean Platelet Volume 10.3 FL (9.6-12.0); Monocytes # 0.5 10*3/uL (0.11-0.8); Monocytes % 5.3 % (1.7-12.7); Neutrophils # 6.1 10*3/uL (1.4-7.4); Platelet Count 248 T/CUMM (130-400); Red Blood Count 3.43 MC/CUMM (3.8-5.5); Red Cell Distribution Width 13.8 % (9.3-17.3); White Blood Count 9.7 T/CUMM (4-12)
[2017-03-04 04:59] LABS: Calcium 8.2 MG/DL (8.5-10.1); Osmolality,Calculated 291.8 MOS/KG (273-304); Potassium 4.2 MMOL/L (3.5-5.1)
[2017-03-04] MEDS: LEVOTHYROXINE 100 MCG TABLET PO SCH (06:22)
[2017-03-04] MEDS: POLYETHYLENE GLYCOL POWDER 17 GM PACK PO SCH (09:23)
[2017-03-04] MEDS: hydrALAZINE 25 MG TABLET PO SCH (09:24)
[2017-03-04] MEDS: CLOPIDOGREL 75 MG TABLET PO SCH (09:24)
[2017-03-04] MEDS: MAGNESIUM OXIDE 400 MG TABLET PO SCH (09:24)
[2017-03-04] MEDS: ASPIRIN EC 81 MG TABLET PO SCH (09:24)
[2017-03-04] MEDS: FUROSEMIDE 80 MG TABLET PO SCH (09:24)
[2017-03-04] MEDS: FAMOTIDINE 20 MG TABLET PO SCH (09:24)
[2017-03-04] MEDS: amLODIPine 10 MG TABLET PO SCH (09:24)
[2017-03-04] MEDS: glipiZIDE 10 MG TABLET PO SCH (09:24)
[2017-03-04] MEDS: DOCUSATE SODIUM 100 MG CAPSULE PO SCH (09:24)
--- NOTE | 2017-03-04 10:34 | Discharge Summary ---
Hospital Course - Hospital Course Hospital Course: This is an 86-year-old man who had severe coronary disease with stenosis of the left main coronary artery and the trifurcation of the large LAD and dominant circumflex and a large ramus. The patient was treated with percutaneous coronary intervention with [facility] support. He underwent stenting of the mid LAD and the ostium of the LAD as well as the ostia of the ramus and the proximal one third of the circumflex. He also had a stent placed to his left main coronary artery and the result was excellent. The patient has been stable post percutaneous coronary intervention. The cath sites are healing well and the patient is ambulating without difficulty. We are going to pull his Colindres catheter and have him ambulate and likely will discharge him later this afternoon. He has been fully instructed related activities medications and precautions. He will see Dr. Jensen for follow-up in 2 weeks. Diagnosis - Discharge Diagnosis (1) Coronary artery arteriosclerosis Status: Chronic (2) Hypertension Status: Chronic Discharge Plan - Discharge Data Disposition: Disch To Home/Self Care Condition at Discharge: Stable Activity: other (As instructed in the post catheterization instruction sheet) - Discharge Medications Continue Hydralazine HCl 25 mg PO BID Docusate Sodium Cap [Colace Cap] 100 mg PO BID Amiodarone Tab [Cordarone Tab] 200 mg PO BEDTIME glipiZIDE [Glucotrol] 10 mg PO BIDAC Furosemide Tab [Lasix Tab] 80 mg PO BID DIURETIC Atorvastatin Calcium 40 mg PO DAILY Isosorbide Mononitrate [Imdur] 60 mg PO DAILY Amlodipine Besylate 1 tablet PO DAILY Pantoprazole Tab [Protonix Tab] 40 mg PO BEDTIME Aspirin Chew Tab 1 tablet PO DAILY Insulin Glargine [Lantus] 15 unit SUBCUT BEDTIME Nitroglycerin [Nitroglycerin SL Tab] 0.4 mg SL Q5M PRN PRN Reason: Chest Pain Albuterol Inhaler [Proventil Inhaler] 2 puff INH Q6H PRN #1 inhaler PRN Reason: Shortness Of Breath/Wheezing Clopidogrel Bisulfate [Clopidogrel] 75 mg PO BID Polyethylene Glycol Powder [Miralax] 17 gm PO DAILY - Follow Up or Referral Follow Up: Xiomara Ceballos DO [Primary Care Provider] - 2 Weeks (ECG CBC CMP on return) - Forms/Instructions Exam - Constitutional Vitals: Period Temp Pulse Resp BP Sys/Lea Pulse Ox Last 24 Hr 97 F-98.1 F 47-76 16-20 96-119/39-55 90-95 Exam: General:no acute distress. alert and oriented, mood and affect are normal HEENT: no new lesions, sclerae are clear, mouth and pharynx benign Neck: supple, trachea midline, no JVD noted Lungs: no rales ronchi or wheeze is noted. pt comfortable without accesory muscle use to assist with breathing CV: RRR no murmur rub or gallop is noted. Abd: soft and nontender, BSNA, no masses. Ext: no cyanosis, clubbing or edema. Both groin intervention sites appear to be stable without hematoma. Peripheral pulses are good. Neuro: grossly intact without focal neurologic deficit. Discharge Results Procedures and tests throughout hospitalization: Pending Orders 03/02/17 08:53 CL heart Routine Labs on day of discharge: Labs from last 24 hours 03/04/17 03/04/17 03/04/17 07:11 04:16 04:16 WBC 9.7 RBC 3.43 L Hgb 9.4 L Hct 30.2 L MCV 88.0 MCH 27 MCHC 31.1 L RDW 13.8 Plt Count 248 MPV 10.3 Neut % (Auto) 63.0 Lymph % (Auto) 29.4 [place] % (Auto) 5.3 Eos % (Auto) 1.6 Baso % (Auto) 0.4 Neut # (Auto) 6.1 Lymph # (Auto) 2.9 [place] # (Auto) 0.5 Eos # (Auto) 0.2 Baso # (Auto) 0.0 Immature Gran % 0.3 Nucleated RBC % 0.0 Immature Gran # 0.03 Nucleated RBCs # 0.00 Sodium 144 Potassium 4.2 Chloride 105 Carbon Dioxide 31 Anion Gap 12.2 BUN 31 H Creatinine 2.10 H GFR Calculation 34 BUN/Creatinine Ratio 14.00 Glucose 83 POC Glucose 83 Calculated Osmolality 291.8 Calcium 8.2 L 03/03/17 03/03/17 19:09 16:15 WBC RBC Hgb Hct MCV MCH MCHC RDW Plt Count MPV Neut % (Auto) Lymph % (Auto) [place] % (Auto) Eos % (Auto) Baso % (Auto) Neut # (Auto) Lymph # (Auto) [place] # (Auto) Eos # (Auto) Baso # (Auto) Immature Gran % Nucleated RBC % Immature Gran # Nucleated RBCs # Sodium Potassium Chloride Carbon Dioxide Anion Gap BUN Creatinine GFR Calculation BUN/Creatinine Ratio Glucose POC Glucose 250 H 155 H Calculated Osmolality Calcium DS: Provider Primary care physician: Xiomara Ceballos DO Consults: 03/02/17 18:00 Consult to Cardiac Rehabilitation [CONS] Routine Reason for Cardiac Rehabilitation: Risk Factor Modification Discharging clinician: Ellis Bangura MD
[2017-03-04 12:11] VITALS: BP 98/42
== END 2017-03-04 13:35 | disposition home or self-care (01) | DRG 215 ==
LOC: N.CL 07:52 → EDSTATUS 14:00 → N.SDSINP 15:27 → N.CC 19:41 → N.TELEN 03-03 10:49 → N.CL 03-04 13:35 → N.TELEN 03-05 13:13
PROVIDERS: ADMIT Internal Medicine Cardiovascular Disease; ATTEND Internal Medicine Cardiovascular Disease

== ENCOUNTER 2017-03-18 08:51 | Inpatient (IN) ==
[2017-03-18 09:13] LABS: Basophils % 0.4 % (0.0-0.8); Eosinophils % 0.2 % (0.00-10.9); Hematocrit 32.4 VOL% (42.0-52.0); Hemoglobin 10.1 GM/DL (14.0-18.0); Immature Granulocytes % 0.4 %; Immature Granulocytes Absolute 0.04 #; Lymphocytes # 2.4 10*3/uL (1.4-4.0); Mean Corpuscular HGB Conc 31.2 GM/DL (32-36); Mean Corpuscular Hemoglobin 27 PG (27-34); Mean Corpuscular Volume 85.5 FL (87-102); Mean Platelet Volume 10.2 FL (9.6-12.0); Monocytes # 0.7 10*3/uL (0.11-0.8); Monocytes % 6.4 % (1.7-12.7); Neutrophils % 68.6 % (38.7-73.9); Platelet Count 228 T/CUMM (130-400); Red Blood Count 3.79 MC/CUMM (3.8-5.5); Red Cell Distribution Width 14.4 % (9.3-17.3); White Blood Count 10.1 T/CUMM (4-12)
[2017-03-18 09:24] LABS: INR 1.1; PT Patient Result 11.5 SECS
--- NOTE | 2017-03-18 09:26 | EKG Report ---
Stationary ECG Study [facility] Test Date: 03/18/2017 9:25:01 AM Pat Name: SHARRI PETIT Department: Room: Gender: M [employer]icated [employer]: : 1930 Requested by: Leonardo Mccabe Order Number: [id number] Reading MD: MARY FERMIN Intervals [place] Rate: 62 P: 999 GA: 0 QRS: 63 QRSD: 104 T: 245 QT: 402 QTc: 407 Interpretive Statements ATRIAL FIBRILLATION Electronically Signed On 03-19-17 14:08:24 CDT by MARY FERMIN [email or web address]
--- NOTE | 2017-03-18 09:39 | XRay Report ---
Exam: XR chest 1V portable Indication: Cardiomegaly, shortness of breath Comparison study: Prior chest radiograph Findings: Residual is enlarged, similar to prior. There are perihilar and basilar interstitial opacities which appear slightly more prominent from the prior examination. Upper lungs remain predominantly clear no pneumothorax. Left hemidiaphragm is elevated similar to prior. Median sternotomy wiring is noted. Impression: Similar mild cardiomegaly with slight worsening of perihilar/basilar interstitial opacities may represent worsening interstitial edema changes and/or developing infectious/inflammatory infiltrates. PROCEDURE INTERPRETED AT [facility] DEPARTMENT OF RADIOLOGY Final Report Signed by: Angel Burgess
[2017-03-18 09:53] LABS: Albumin 3.7 G/DL (3.4-5.0); Bilirubin,Total 0.7 MG/DL (0.2-1.0); Calcium 8.9 MG/DL (8.5-10.1); Potassium 4.1 MMOL/L (3.5-5.1); Troponin I Only 0.024 NG/ML (0.00-0.045)
[2017-03-18] MEDS ORDERED: FUROSEMIDE 40 MG/4 ML VIAL IV STA (10:00)
[2017-03-18] MEDS ORDERED: FUROSEMIDE 40 MG/4 ML VIAL ONE (10:02)
[2017-03-18 10:08] LABS: Apearance,Urine CLEAR (Clear); Bilirubin,Urine Negative (Negative); Blood, Urine Negative (Negative); Glucose,Urine (UA) Negative (Negative); Hyaline Casts,Urine 2 /LPF (0-3); Ketones,Urine Negative (Negative); Mucus,Urine Occasional /LPF (Occasional); Nitrite,Urine Negative (Negative); Protein,Urine Negative; RBC,Urine <1 /HPF (0-4); Squamous Epithelial Cell,Urine Occasional /HPF (0-10); Urine Color Yellow (Yellow); Urine Urobilinogen < 2.0 EU/DL (0.2-1.0); WBC,Urine <1 /HPF (0-6)
--- NOTE | 2017-03-18 10:16 | Emergency Department Note ---
ISusie Hilary, am scribing for, and in the presence of, Leonardo Mccabe Jr., MD 09:09. IEliot Marvin Jr., MD, personally performed the services described in this documentation, ascribed by Caitlin Richards in my presence, and it is both accurate and complete . Arrival - Arrival Chief Complaint: Shortness of Breath Stated Complaint: hard or trouble breathing ED Nursing Triage Note: C/O HAVING SOB SINCE SUNDAY , + COUGHING, " I HAVE CONGESTION STUFF IN MY CHEST" , STATES HAD TEMP OF 99.8 LAST NIGHT., DENIES HAVING PAIN , Mode of Arrival: Wheelchair Limitations: No Limitations Source: Patient, Family (daughter), RN Notes Reviewed - History of Present Illness HPI Narrative: Pt is a 86 y/o white male presenting to the ED with c/o SOB which is chronic but became worse 6 days and continues to worsen. He says it is severe now Pt confirms cough, wheezing, SOB which worsens when he walks, fever, loss of appetite but denies nausea or vomiting. Pt has a PMHx of CHF, CAD, HTN, Valvular Heart Disease, Cardiac dysrhythmia, Dyslipidemia, IDDM, renal failure, COPD, and GERD. No other complaints or problems stated in the ED. Onset (ago): day(s) Consistency: constant Severity: severe Allergies/Adverse Reactions: Allergies Allergy/AdvReac Type Severity Reaction Status Date / Time No Known Allergies Allergy Verified 03/18/17 08:56 Home Medications: Home Medications Medication Instructions Recorded Confirmed Type Amiodarone Tab [Cordarone Tab] 200 mg PO BEDTIME 05/06/15 03/03/17 History Amlodipine Besylate 1 tablet PO DAILY 05/06/15 03/03/17 History Aspirin Chew Tab 1 tablet PO DAILY 05/06/15 03/03/17 History Atorvastatin Calcium 40 mg PO DAILY 05/06/15 03/03/17 History Docusate Sodium Cap [Colace Cap] 100 mg PO BID 05/06/15 03/03/17 History Furosemide Tab [Lasix Tab] 80 mg PO BID DIURETIC 05/06/15 03/03/17 History Hydralazine HCl 25 mg PO BID 05/06/15 03/03/17 History Isosorbide Mononitrate [Imdur] 60 mg PO DAILY 05/06/15 03/03/17 History Pantoprazole Tab [Protonix Tab] 40 mg PO BEDTIME 05/06/15 03/03/17 History glipiZIDE [Glucotrol] 10 mg PO BIDAC 05/06/15 03/03/17 History Insulin Glargine [Lantus] 15 unit SUBCUT BEDTIME 01/30/16 03/03/17 History Albuterol Inhaler [Proventil 2 puff INH Q6H PRN #1 inhaler 10/15/16 03/03/17 Rx Inhaler] Clopidogrel Bisulfate [Clopidogrel] 75 mg PO BID 01/01/17 03/03/17 History Polyethylene Glycol Powder 17 gm PO DAILY 02/16/17 03/03/17 History [Miralax] Nitroglycerin [Nitroglycerin SL 0.4 mg SL Q5M PRN 03/02/17 03/03/17 History Tab] Review of System - Review of System 12 point system: reviewed and no additional remarkable complaints except as stated - Review of System Constitutional: Present: fever, other (loss of appetite) Respiratory: Present: cough, respiratory distress (SOB), wheezing Gastrointestinal: Absent: nausea, vomiting Medical,Surgical,& Family Hx - Medical History Cardio: History of: Cardiac Dysrhythmia, CHF, CAD, Hypertension, Valvular Heart Disease (replacement) Neurology: No history of: Seizures Endocrine: History of: Diabetes Mellitus (IDDM), Dyslipidemia Respiratory: History of: COPD, Intubation, Pneumonia Renal: History of: Renal Problems (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, kidney failure) Genitourinary: History of: Prostate Problems Gastrointestinal: History of: GERD, Polyps Hematology: History of: Bleeding Problems (Takes blood thinner) - Surgical History Cardiac Surgeries: Sugical HX of: Femoral-Popliteal Bypass Graft, Cardiac Catheterization, Cardiac Surgery (CABG Valve Replacement) Neurologic Surgeries: Patient denies: Neurologic Surgery Abdominal Surgeries: Surgical HX of: Appendectomy, Cholecystectomy, Colonoscopy Reproductive Surgeries: Surgical HX of;: Prostate Surgery - Family History Family History: Reports;: Family Cancer, Family Diabetes, Family Heart Disease - Social History Smoking Status: Former smoker Frequency of Alcohol Use: None Type of Drug Use: None Exam Physical Examination: General: Well-developed well-nourished, mild distress Head: Normocephalic, atraumatic. Eyes: PERRLA, EOMI. Nose: No obvious acute deformities or discharge. Mouth: No obvious acute injury. Neck: Full range of motion without obvious pain. No midline tender to palpation. Lymphatic: no significant lymphadenopathy noted. Lungs: Patient slightly tachypneic, mild labored respiration, no wheezing, Heart: 4/6 systolic ejection murmur noted Peripheral vascular tear: Pitting edema, moderate, lower extremities Abdomen: Soft nontender, nondistended, normal active bowel sounds. Skin: No obivous acute lesions noted, slightly pale Musculoskeletal: No gross deformities. Neurological: No focal findings, cranial nerves II through XII grossly normal. Psychiatric: Appropriate mood.. : Deferred Vital Signs: Vital Signs Temperature 98.7 F 03/18/17 08:53 Pulse Rate 78 03/18/17 08:53 Respiratory Rate 23 03/18/17 09:14 Blood Pressure 136/69 03/18/17 08:53 O2 Sat by Pulse Oximetry 89 L 03/18/17 08:53 Course Course Narrative: Differential diagnosis: Congestive heart failure exacerbation, pulmonary edema, pleural effusion, ACS - Reevaluation(s) Reevaluation #1: Patient unchanged. I offered to give him a dosage of Lasix and send him home and follow-up with his doctor tomorrow. He says he is too weak and does not feel he can do this safely. I then call the hospitalist service and they have accepted this patient for admission. Time: 10:13 Results - Labs CBC & BMP: 03/18/17 09:07 03/18/17 09:07 Lab Results: I have reviewed the patients labs Labs: Laboratory Tests 03/18/17 09:07 WBC 10.1 RBC 3.79 L Hgb 10.1 L Hct 32.4 L MCV 85.5 L MCH 27 MCHC 31.2 L RDW 14.4 Plt Count 228 MPV 10.2 Neut % (Auto) 68.6 Lymph % (Auto) 24.0 [place] % (Auto) 6.4 Eos % (Auto) 0.2 Baso % (Auto) 0.4 Neut # (Auto) 7.0 Lymph # (Auto) 2.4 Montgomery # (Auto) 0.7 Eos # (Auto) 0.0 Baso # (Auto) 0.0 Immature Gran % 0.4 Nucleated RBC % 0.0 Immature Gran # 0.04 Nucleated RBCs # 0.00 Laboratory Tests 03/18/17 09:07 INR 1.1 PT Patient/Control Mix 11.5 Laboratory Tests 03/18/17 09:07 Sodium 143 Potassium 4.1 Chloride 103 Carbon Dioxide 30 Anion Gap 14.1 BUN 33 H Creatinine 2.40 H GFR Calculation 29 BUN/Creatinine Ratio 13.00 Glucose 131 H Calculated Osmolality 293.0 Calcium 8.9 Total Bilirubin 0.70 AST 19 ALT 26 Alkaline Phosphatase 64 Troponin I 0.024 Total Protein 7.0 Albumin 3.7 Globulin 3.3 Albumin/Globulin Ratio 1.1 - EKG EKG results: interpreted by ERMD (Heart rate 62, no obvious P waves, consistent with atrial fibrillation, rate controlled, narrow complex QRS complexes, slight ST elevation noted in leads II-III but not aVF and no reciprocal changes are noted. This could be a variation associated with baseline changes.) - Diagnostic Findings Procedure: Chest x-ray: report reviewed by me, image reviewed by me (Similar mild cardiomegaly with slight worsening of perihilar/basilar interstitial opacities may represent worsening interstitual edema changes and/or developing infectious/inflammatory infiltrates) Disposition Clinical Impression: Acute exacerbation of congestive heart failure, Atrial fibrillation, Renal insufficiency, History of hypertension, Hypoxemia Case discussed with: patient, patient's family Disposition: Still a Patient Condition: Stable Time of Disposition: 10:15
[2017-03-18] MEDS ORDERED: MORPHINE 2 MG/1 ML SYRINGE IV PRN (11:16)
[2017-03-18] MEDS ORDERED: guaiFENesin/DM ER 600-30 MG TABLET PO PRN (11:16)
[2017-03-18] MEDS ORDERED: ONDANSETRON 4 MG/2 ML VIAL IV PRN (11:16)
[2017-03-18] MEDS ORDERED: ACETAMINOPHEN 325 MG TABLET PO PRN (11:16)
[2017-03-18] MEDS ORDERED: LACTULOSE 20 GM/30 ML UDCUP PO PRN (11:16)
[2017-03-18] MEDS ORDERED: DOCUSATE SODIUM 100 MG CAPSULE PO PRN (11:16)
[2017-03-18 11:57] LABS: Albumin 3.8 G/DL (3.4-5.0); Bilirubin,Direct 0.3 MG/DL (0.0-0.20); Bilirubin,Indirect 0.4 MG/DL (0.0-1.0); Bilirubin,Total 0.7 MG/DL (0.2-1.0); Total Protein 7.1 G/DL (6.4-8.3)
--- NOTE | 2017-03-18 14:10 | Hospitalist History & Physical ---
<Sara Nelson N - Last Filed: 03/18/17 13:55> Assessment and Plan - Time spent with patient Time spent with patient: Greater than 30 minutes (1) Acute exacerbation of congestive heart failure Status: Acute Assessment and plan: admit to Monitored Bed to Dr. 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 Crowley Current Visit: Yes (2) Atrial fibrillation Status: Acute Assessment and plan: controlled rate at present, continue Plavix, continue routine meds, consult [facility] Current Visit: Yes (3) Renal insufficiency Status: Acute Assessment and plan: consult Dr. Tinsely with nephrology, pt has seen him in the past evaluate nephrotoxic medications, Current Visit: Yes (4) Coronary artery arteriosclerosis Status: Chronic Current Visit: No (5) Diabetes mellitus type 2 in nonobese Status: Chronic Assessment and plan: accuchecks ACHS SSI PRN continue Lantus at night hold glipizide for now Current Visit: No (6) Right upper quadrant abdominal pain Status: Acute Assessment and plan: possible Liver mass vs Old hernia, due to pt's elevated Creatinine he is not a candidate for CT, we will do an US to evaluate Liver better also will monitor for free fluid in the abdomen with US due to abdominal distention, Hepatic Panel Current Visit: Yes History of Present Illness Chief complaint: CHF exacerbation History of present illness: Mr. Mcdonald is a 86 year old male who presents to the ER today with shortness of breath and CHF exacerbation. He states that he has been increasingly short of breath since for the past 6 days but this morning he could not make it to the restroom without getting so winded he thought he was going to pass out. He uses 2L of O2 per NC at home continuously. He does not use nebulizer treatments but has been using a rescue inhaler 4 times a day. He was admitted on 03/02/[address] Ceballos with Cardiology and had 5 stents placed. Discharged 15 days ago. He has a long history of ER visits and readmits due to his CHF. He states he will feel better for a few days and then the fluid will build up again. He takes 80mg PO Lasix BID. States he is still gaining 3-4 pounds daily. He also has a medical history of renal insufficiency, sees Dr. Tinsley, and DM. His PCP is Dr. Ward. He uses [facility] home [facility] but states he is interested in speaking with Hospice regarding Home Hospice. I have listed several local hospice agencies and they would like to speak with someone from [facility]. He request to be a DNR. His daugter is at bedside. She states he had a low grade fever last night, also that he has been coughing much more recently with copious white/yellow sputum production. -on exam pt's lungs are wet and coarse bilat, worse left than right, especially in the bases. his abdomen is also largely distended, not taught. he states that this has been worsening. He complains of some RUQ abdominal pain, there is a possible hernia in an old scar at his RUQ. -He denies AGUILERA, blurry vision, chest pain, n/v/d, dysuria or hematuria, last BM today and normal +sob, cough, abdominal pain, and BLE edema, 4+ edema to LLE, 3+ edema to RLE -he lives alone, states he is not eating lately and has no appetite, daughter states he requires moderate assistance with ADL's -further to follow per DR. CROWLEY Home Medications Medication Instructions Recorded Confirmed Type Amiodarone Tab [Cordarone Tab] 200 mg PO BEDTIME 05/06/15 03/18/17 History Amlodipine Besylate 1 tablet PO QPM 05/06/15 03/18/17 History Aspirin Chew Tab 1 tablet PO QAM 05/06/15 03/18/17 History Atorvastatin Calcium 40 mg PO QPM 05/06/15 03/18/17 History Docusate Sodium Cap [Colace Cap] 100 mg PO BID 05/06/15 03/18/17 History Furosemide Tab [Lasix Tab] 80 mg PO BID DIURETIC 05/06/15 03/18/17 History Hydralazine HCl 25 mg PO BID 05/06/15 03/18/17 History Isosorbide Mononitrate [Imdur] 60 mg PO QAM 05/06/15 03/18/17 History Pantoprazole Tab [Protonix Tab] 40 mg PO BEDTIME 05/06/15 03/18/17 History glipiZIDE [Glucotrol] 10 mg PO BIDAC 05/06/15 03/18/17 History Insulin Glargine [Lantus] 15 unit SUBCUT BEDTIME 01/30/16 03/18/17 History Albuterol Inhaler [Proventil 2 puff INH Q6H PRN #1 inhaler 10/15/16 03/18/17 Rx Inhaler] Clopidogrel Bisulfate [Clopidogrel] 75 mg PO QAM 01/01/17 03/18/17 History Polyethylene Glycol Powder 17 gm PO QAM 02/16/17 03/18/17 History [Miralax] Nitroglycerin [Nitroglycerin SL 0.4 mg SL Q5M PRN 03/02/17 03/18/17 History Tab] Allergies Allergy/AdvReac Type Severity Reaction Status Date / Time No Known Allergies Allergy Verified 03/18/17 08:56 Medical,Surgical,& Family Hx - Medical History Cardio: History of: Cardiac Dysrhythmia, CHF, CAD, Hypertension, Valvular Heart Disease (replacement), Cardiovascular Problems (stents placed 3 weeks ago) Neurology: No history of: Seizures Endocrine: History of: Diabetes Mellitus (IDDM), Dyslipidemia Respiratory: History of: COPD, Intubation, Pneumonia Renal: History of: Renal Problems (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, kidney failure) Genitourinary: History of: Prostate Problems Gastrointestinal: History of: GERD, Polyps Hematology: History of: Bleeding Problems (Takes blood thinner) - Surgical History Cardiac Surgeries: Sugical HX of: Femoral-Popliteal Bypass Graft, Cardiac Catheterization, Cardiac Surgery (CABG Valve Replacement) Neurologic Surgeries: Patient denies: Neurologic Surgery Abdominal Surgeries: Surgical HX of: Appendectomy, Cholecystectomy, Colonoscopy Reproductive Surgeries: Surgical HX of;: Prostate Surgery - Family History Family History: Reports;: Family Cancer, Family Diabetes, Family Heart Disease - Social History Smoking Status: Former smoker Frequency of Alcohol Use: None Type of Drug Use: None Marital Status: Lives With:: Alone Functional capacity: uses cane/walker - Constitutional Constitutional: Present: fatigue, fever(s). Absent: headache(s) - EENT Eyes: Absent: blurry vision Nose, mouth and throat: Absent: headache(s) - Cardiovascular Cardiovascular: Present: dyspnea, dyspnea on exertion, edema, orthopnea. Absent : chest pain at rest, palpitations - Respiratory Respiratory: Present: cough, dyspnea on exertion, change in phlegm color - Gastrointestinal Gastrointestinal: Present: abdominal pain, bloating. Absent: constipation, hematochezia, vomiting - Genitourinary Genitourinary: Absent: dysuria, hematuria - Musculoskeletal Musculoskeletal: Present: muscle weakness, myalgias. Absent: back pain - Neurological Neurological: Absent: confusion, focal weakness, numbness - Psychiatric Psychiatric: Absent: anxiety, confusion - Endocrine Endocrine: Present: fatigue. Absent: polyphagia, polyuria - Hematologic/Lymphatic Hematologic/Lymphatic: Absent: easy bleeding, easy bruising Exam - Constitutional Vitals: Period Temp Pulse Resp BP Sys/Lea Pulse Ox Last 24 Hr 98.0 F-98.7 F 64-83 18-23 131-136/50-69 89-96 General appearance: mild distress, over weight - Head Head exam: Present: normal inspection, normocephalic, atraumatic - Eye Eye exam: Present: EOMI Pupils: Present: MILAGROS, normal accommodation - ENT ENT exam: Present: normal exam, normal oropharynx - Neck Neck exam: Present: normal inspection, lymphadenopathy - Respiratory Respiratory exam: Present: rhonchi, other (coarse wet in all [place], worse left than right, worse in bases) - Cardiovascular Cardiovascular exam: Present: regular rate and rhythm. Absent: tachycardia - GI/Abdominal GI/Abdominal exam: Present: distended, tenderness - Extremities Exam Extremities exam: Present: full ROM, edema (3+RLE, 4+ LLE) - Back Exam Back exam: Present: normal inspection. Absent: vertebral tenderness - Neurological Exam Neurological exam: Present: alert, oriented X3 - Psychiatric Psychiatric exam: Present: normal affect, normal mood - Skin Skin exam: Present: normal color, warm, dry Results - Labs CBC & BMP: 03/18/17 09:07 03/18/17 09:07 Lab Results: I have reviewed the past 24 hour labs - EKG EKG shows: atrial fibrillation - Diagnostic Findings Procedure: Chest x-ray: report reviewed by me (Similar mild cardiomegaly with slight worsening of perihilar/basilar) Quality Measures - VTE Contraindication to Pharmacological VTE Prophylaxis: Already on Theraputic Agent , No Prophylaxis Needed <Anara,Contreras - Last Filed: 03/18/17 15:38> History of Present Illness History of present illness: Mr. Mcdonald is a 86 year old male Exam - Constitutional Vitals: Period Temp Pulse Resp BP Sys/Lea Pulse Ox Last 24 Hr 98.0 F-98.7 F 64-83 18-23 131-136/50-69 89-96 Results - Labs CBC & BMP: 03/18/17 09:07 03/18/17 09:07
[2017-03-18] MEDS ORDERED: GLUCAGON 1 MG VIAL IM PRN (14:14)
[2017-03-18] MEDS ORDERED: DEXTROSE 50% 25 GM/50 ML VIAL IV PRN (14:14)
[2017-03-18] MEDS ORDERED: ALBUTEROL/IPRATROPIUM 3 ML NEB RESP TX PRN (14:19)
[2017-03-18] MEDS: FUROSEMIDE 40 MG/4 ML VIAL IV SCH (16:39)
[2017-03-18] MEDS: INSULIN REGULAR 100 UNIT/ML SUBCUT SCH ×2 (16:40→21:24)
[2017-03-18] MEDS ORDERED: metOLazone 5 MG TABLET PO ONE (17:03)
--- NOTE | 2017-03-18 17:15 | Cardiology Consult Note ---
Assessment and Plan - Time spent with patient Time spent with patient: Greater than 30 minutes (Exam, office and film and chart review discussion with the patient documentation) (1) Bradycardia Status: Acute Assessment and plan: This may be the problem. If the patient does not improve will consider pacing. I have stopped his amiodarone must also consider the fact that amiodarone may be playing problems with his lung disease. I will order a high resolution CT scan of the chest if there is nothing to suggest amiodarone lung with normal oxygenation I recommend that we place a dual-chamber pacemaker. He is on no AV alvaro blocking agents and he may simply have bradycardia causing his problems. I will discuss with Dr. Bangura who will be taking over the service tomorrow Current Visit: Yes (2) Acute exacerbation of congestive heart failure Status: Acute Current Visit: Yes (3) Atrial fibrillation Status: Chronic Current Visit: Yes Qualifiers: Atrial fibrillation type: paroxysmal Qualified Code(s): I48.0 - Paroxysmal atrial fibrillation (4) Renal insufficiency Status: Chronic Current Visit: Yes (5) Coronary artery arteriosclerosis Status: Chronic Current Visit: No (6) Diabetes mellitus type 2 in nonobese Status: Chronic Current Visit: No (7) Dyslipidemia Status: Chronic Current Visit: No (8) History of aortic valve replacement with bioprosthetic valve Status: Chronic Current Visit: No (9) Hypertension Status: Chronic Current Visit: No Qualifiers: Hypertension type: essential hypertension Qualified Code(s): I10 - Essential (primary) hypertension History of Present Illness - Data of Consult Patient: known to practice within the last 3 years Consult date: 03/18/17 Requesting Physician: Contreras Crowley Primary care physician: Jagjit Ward ([facility]) - Consult Narrative Reason for consult: Heart failure History of present illness: Mr. Mcdonald is a 86 year old male patient who recently underwent facilitated PCI in late February for progressive heart failure symptoms he had high-grade distal left main ostial left circumflex ostial ramus intermedius and ostial LAD all treated with a total of 5 drug-eluting stents. He has done well since that time and originally felt better. He called the office on 03/14/2017 while I was in the hospital. I was contacted by the nurses and I gave an order for Zaroxolyn 10 mg on the and repeat today 30 minutes prior to his Lasix dose make sure he was on a 2 g sodium diet have him take daily weights and get them sent to us with a Chem-7 tomorrow. Apparently the medications were called in but the patient was never notified of anything today. The nurse from [facility] and initiated the call I am not aware and is not documented in our chart whether she was notified of the patient was notified where they were both notified with that they were neither note. The patient and his daughter states that he never received a call back from our office and he thought they were "trying to get in touch with me." The patient came to the emergency room today because of progressive dyspnea he says "I have no way and he has orthopnea he has not had any significant lower extremity edema he has had poor p.o. intake and early satiety. He says that I can eat because I cannot breathe. I recently saw him in the office and he looked quite good. We were convinced that he was better. This was on 03/09/2017. He clearly is doing poorly. He has known diastolic dysfunction he had a previous aortic valve replacement he also has chronic kidney disease with a creatinine clearance of 30-59. All of this could be playing a role. At the time of his left heart catheterization intervention on 519 prior to revascularization his end-diastolic pressure was 27. His weight on 519 was 92.892 kg today was recorded at 92.42 kg. He is down roughly 2.6 kg. His labs all look stable. His BNP is mildly elevated given his degree of diastolic dysfunction renal insufficiency this does not appear to be that significantly elevated. His chest x-ray has what be may be mild interstitial edema he also has an elevated left hemidiaphragm and loops of small bowel in the left chest. CC: WERO Goncalves - Home Medications and Allergies Home Medications: Home Medications Medication Instructions Recorded Confirmed Type Amiodarone Tab [Cordarone Tab] 200 mg PO BEDTIME 05/06/15 03/18/17 History Amlodipine Besylate 1 tablet PO QPM 05/06/15 03/18/17 History Aspirin Chew Tab 1 tablet PO QAM 05/06/15 03/18/17 History Atorvastatin Calcium 40 mg PO QPM 05/06/15 03/18/17 History Docusate Sodium Cap [Colace Cap] 100 mg PO BID 05/06/15 03/18/17 History Furosemide Tab [Lasix Tab] 80 mg PO BID DIURETIC 05/06/15 03/18/17 History Hydralazine HCl 25 mg PO BID 05/06/15 03/18/17 History Isosorbide Mononitrate [Imdur] 60 mg PO QAM 05/06/15 03/18/17 History Pantoprazole Tab [Protonix Tab] 40 mg PO BEDTIME 05/06/15 03/18/17 History glipiZIDE [Glucotrol] 10 mg PO BIDAC 05/06/15 03/18/17 History Insulin Glargine [Lantus] 15 unit SUBCUT BEDTIME 01/30/16 03/18/17 History Albuterol Inhaler [Proventil 2 puff INH Q6H PRN #1 inhaler 10/15/16 03/18/17 Rx Inhaler] Clopidogrel Bisulfate [Clopidogrel] 75 mg PO QAM 01/01/17 03/18/17 History Polyethylene Glycol Powder 17 gm PO QAM 02/16/17 03/18/17 History [Miralax] Nitroglycerin [Nitroglycerin SL 0.4 mg SL Q5M PRN 03/02/17 03/18/17 History Tab] Allergies/Adverse Reactions: Allergies Allergy/AdvReac Type Severity Reaction Status Date / Time No Known Allergies Allergy Verified 03/18/17 08:56 - Constitutional Constitutional: Present: anorexia, daytime sleepiness, fatigue, weight loss - EENT Eyes: Absent: blurry vision Ears: Absent: decreased hearing Nose, mouth and throat: Absent: epistaxis, lip swelling, nasal congestion - Cardiovascular Cardiovascular: Present: dyspnea, dyspnea on exertion. Absent: chest pain at rest, chest pain with activity - Respiratory Respiratory: Present: dyspnea, dyspnea on exertion. Absent: wheezing, snoring - Gastrointestinal Gastrointestinal: Absent: abdominal pain, constipation, cramping, dyspepsia - Genitourinary Genitourinary: Present: difficulty urinating. Absent: flank pain, hematuria - Musculoskeletal Musculoskeletal: Absent: arthralgias, joint swelling - Neurological Neurological: Absent: abnormal gait, abnormal speech, disequilibrium - Psychiatric Psychiatric: Present: depression. Absent: anxiety - Endocrine Endocrine: Absent: cold intolerance, heat intolerance - Hematologic/Lymphatic Hematologic/Lymphatic: Present: easy bruising. Absent: easy bleeding Medical,Surgical,& Family Hx - Medical History Cardio: History of: Cardiac Dysrhythmia, CHF, CAD (Facilitated PCI 03/02/2017 as described above), Hypertension, Valvular Heart Disease (replacement), Cardiovascular Problems (stents placed 3 weeks ago, paroxysmal atrial fibrillation) Neurology: No history of: Seizures Endocrine: History of: Diabetes Mellitus (IDDM), Dyslipidemia Respiratory: History of: COPD, Intubation, Pneumonia Renal: History of: Renal Problems (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, kidney failure) Genitourinary: History of: Prostate Problems Gastrointestinal: History of: GERD, Polyps Hematology: History of: Bleeding Problems (Takes blood thinner) - Surgical History Cardiac Surgeries: Sugical HX of: Femoral-Popliteal Bypass Graft, Cardiac Catheterization, Cardiac Surgery (CABG Valve Replacement) Neurologic Surgeries: Patient denies: Neurologic Surgery Abdominal Surgeries: Surgical HX of: Appendectomy, Cholecystectomy, Colonoscopy Reproductive Surgeries: Surgical HX of;: Prostate Surgery - Family History Family History: Reports;: Family Cancer, Family Diabetes, Family Heart Disease - Social History Smoking Status: Former smoker Frequency of Alcohol Use: None Type of Drug Use: None Physical Examination Vital Signs Temp Pulse Resp BP Pulse Ox 98.7 F 78 18 136/69 89 L 03/18/17 08:53 03/18/17 08:53 03/18/17 08:53 03/18/17 08:53 03/18/17 08:53 General: Present: Other (Appears chronically ill appears depressed) HEENT: Present: PERRL, Normocephaly. Absent: Pallor Neck: Present: Supple Neck, Midline Trachea Cardiac: Present: Reg Rate and Rhythm, S1/S2 (Murmur of aortic prosthesis). Absent: S4 Lungs: Present: Normal Exam (He has no rales.) Neuro: Present: Cranial Nerve 2-12 Intact, Motor Function Intact Abdomen: Present: Soft, Active Bowel Sounds, No Masses, Distended Skin: Present: Clear. Absent: Rash, Wound Extremities: Present: +1 Edema (Slightly worse on the left, no pretibial edema on the right) Result/EKG - Labs CBC & BMP: 03/18/17 09:07 03/18/17 09:07 Labs: Laboratory Results - last 24 hr 03/18/17 03/18/17 03/18/17 09:07 09:07 09:07 WBC 10.1 RBC 3.79 L Hgb 10.1 L Hct 32.4 L MCV 85.5 L MCH 27 MCHC 31.2 L RDW 14.4 Plt Count 228 MPV 10.2 Neut % (Auto) 68.6 Lymph % (Auto) 24.0 Kay % (Auto) 6.4 Eos % (Auto) 0.2 Baso % (Auto) 0.4 Neut # (Auto) 7.0 Lymph # (Auto) 2.4 Kay # (Auto) 0.7 Eos # (Auto) 0.0 Baso # (Auto) 0.0 Immature Gran % 0.4 Nucleated RBC % 0.0 Immature Gran # 0.04 Nucleated RBCs # 0.00 INR 1.1 PT Patient/Control Mix 11.5 Sodium 143 Potassium 4.1 Chloride 103 Carbon Dioxide 30 Anion Gap 14.1 BUN 33 H Creatinine 2.40 H GFR Calculation 29 BUN/Creatinine Ratio 13.00 Glucose 131 H POC Glucose Calculated Osmolality 293.0 Calcium 8.9 Magnesium Total Bilirubin 0.70 Direct Bilirubin Indirect Bilirubin AST 19 ALT 26 Alkaline Phosphatase 64 Troponin I 0.024 B-Natriuretic Peptide Total Protein 7.0 Albumin 3.7 Globulin 3.3 Albumin/Globulin Ratio 1.1 Urine Color Urine Appearance Urine pH Ur Specific Post Urine Protein Urine Glucose (UA) Urine Ketones Urine Blood Urine Nitrate Urine Bilirubin Urine Urobilinogen Urine Leukocytes Urine RBC Urine WBC Ur Squamous Epith Cells Hyaline Casts Urine Mucus Ur Culture Indicated? 03/18/17 03/18/17 03/18/17 09:07 09:07 09:07 WBC RBC Hgb Hct MCV MCH MCHC RDW Plt Count MPV Neut % (Auto) Lymph % (Auto) Kay % (Auto) Eos % (Auto) Baso % (Auto) Neut # (Auto) Lymph # (Auto) Kay # (Auto) Eos # (Auto) Baso # (Auto) Immature Gran % Nucleated RBC % Immature Gran # Nucleated RBCs # INR PT Patient/Control Mix Sodium Potassium Chloride Carbon Dioxide Anion Gap BUN Creatinine GFR Calculation BUN/Creatinine Ratio Glucose POC Glucose Calculated Osmolality Calcium Magnesium 2.6 H Total Bilirubin 0.70 Direct Bilirubin 0.30 H Indirect Bilirubin 0.4 AST 19 ALT 26 Alkaline Phosphatase 62 Troponin I B-Natriuretic Peptide 509 H Total Protein 7.1 Albumin 3.8 Globulin Albumin/Globulin Ratio Urine Color Urine Appearance Urine pH Ur Specific Post Urine Protein Urine Glucose (UA) Urine Ketones Urine Blood Urine Nitrate Urine Bilirubin Urine Urobilinogen Urine Leukocytes Urine RBC Urine WBC Ur Squamous Epith Cells Hyaline Casts Urine Mucus Ur Culture Indicated? 03/18/17 03/18/17 10:00 16:26 WBC RBC Hgb Hct MCV MCH MCHC RDW Plt Count MPV Neut % (Auto) Lymph % (Auto) Kay % (Auto) Eos % (Auto) Baso % (Auto) Neut # (Auto) Lymph # (Auto) Kay # (Auto) Eos # (Auto) Baso # (Auto) Immature Gran % Nucleated RBC % Immature Gran # Nucleated RBCs # INR PT Patient/Control Mix Sodium Potassium Chloride Carbon Dioxide Anion Gap BUN Creatinine GFR Calculation BUN/Creatinine Ratio Glucose POC Glucose 120 H Calculated Osmolality Calcium Magnesium Total Bilirubin Direct Bilirubin Indirect Bilirubin AST ALT Alkaline Phosphatase Troponin I B-Natriuretic Peptide Total Protein Albumin Globulin Albumin/Globulin Ratio Urine Color Yellow Urine Appearance Clear Urine pH 5.0 Ur Specific Post 1.010 Urine Protein Negative Urine Glucose (UA) Negative Urine Ketones Negative Urine Blood Negative Urine Nitrate Negative Urine Bilirubin Negative Urine Urobilinogen < 2.0 H Urine Leukocytes Negative Urine RBC <1 Urine WBC <1 Ur Squamous Epith Cells Occasional Hyaline Casts 2 Urine Mucus Occasional Ur Culture Indicated? Not indicated - EKG EKG results: interpreted by me Quality Measures - VTE Contraindication to Pharmacological VTE Prophylaxis: Already on Theraputic Agent , No Prophylaxis Needed
[2017-03-18] MEDS ORDERED: amLODIPine 10 MG TABLET PO SCH (19:00)
[2017-03-18] MEDS ORDERED: hydrALAZINE 25 MG TABLET PO SCH (21:00)
[2017-03-18] MEDS ORDERED: AMIODARONE 200 MG TABLET PO SCH (21:00)
[2017-03-18] MEDS: amLODIPine 10 MG TABLET PO SCH (21:23)
[2017-03-18] MEDS: INSULIN GLARGINE 100 UNIT/ML SUBCUT SCH (21:24)
[2017-03-18 22:09] LABS: ABG Base Excess 6.1 MMOL/L (-2.5-2.5); ABG HCO3 29.9 MMOL/L (20-26); ABG Oxygen Saturation 94.3 % (95-100); ABG PCO2 48.3 MM HG (35-48); ABG PH 7.421 (7.35-7.45); ABG PO2 70.7 MM HG (80-95); ABG TCO2 28.9 MMOL/L (23-27)
[2017-03-19 05:13] LABS: Basophils % 0.5 % (0.0-0.8); Eosinophils % 0.4 % (0.00-10.9); Hematocrit 29.6 VOL% (42.0-52.0); Hemoglobin 9.2 GM/DL (14.0-18.0); Immature Granulocytes % 0.7 %; Immature Granulocytes Absolute 0.05 #; Lymphocytes # 2.3 10*3/uL (1.4-4.0); Lymphocytes % 29.6 % (21.2-54.2); Mean Corpuscular HGB Conc 31.1 GM/DL (32-36); Mean Corpuscular Hemoglobin 27 PG (27-34); Mean Corpuscular Volume 85.5 FL (87-102); Mean Platelet Volume 10.7 FL (9.6-12.0); Monocytes # 0.6 10*3/uL (0.11-0.8); Monocytes % 7.2 % (1.7-12.7); Neutrophils # 4.7 10*3/uL (1.4-7.4); Neutrophils % 61.6 % (38.7-73.9); Platelet Count 196 T/CUMM (130-400); Red Blood Count 3.46 MC/CUMM (3.8-5.5); Red Cell Distribution Width 14.5 % (9.3-17.3); White Blood Count 7.7 T/CUMM (4-12)
[2017-03-19 05:57] LABS: Albumin 3.2 G/DL (3.4-5.0); Bilirubin,Total 0.7 MG/DL (0.2-1.0); Calcium 8.5 MG/DL (8.5-10.1); Osmolality,Calculated 288.1 MOS/KG (273-304); Potassium 3.5 MMOL/L (3.5-5.1); Total Protein 6.3 G/DL (6.4-8.3)
--- NOTE | 2017-03-19 06:41 | Event Note ---
The patient's heart rate has come up. He is at high risk for stroke but is on dual antiplatelet therapy. His hemoglobin is low. No anticoagulation for now. He has resting hypoxemia and his amiodarone has been held he is scheduled for high resolution CT scan today. Amiodarone certainly may be playing a role here. He also needs PFTs.
[2017-03-19 07:04] LABS: % Iron Saturation 4.7 % (18-50); Ferritin 41.5 ng/ml (26-388)
--- NOTE | 2017-03-19 08:16 | XRay Report ---
XR chest 1V portable Indication: SOB Comparison: Chest x-ray dated March 18, 2017 Technique: Single frontal view of the chest. Findings: Continued cardiomegaly status post sternotomy. Mildly progressed left basilar atelectasis/consolidation suspicious for pneumonia. There is continued elevation of left hemidiaphragm. Visualized osseous and surrounding soft tissue structures appear grossly unchanged. IMPRESSION: As above. PROCEDURE INTERPRETED AT [facility] DEPARTMENT OF RADIOLOGY Final Report Signed by: Dr Jarad Martin
--- NOTE | 2017-03-19 08:22 | EKG Report ---
Stationary ECG Study [facility] Test Date: 03/19/2017 8:22:43 AM Pat Name: SHARRI PETIT Department: Room: 533 Gender: M Sr Account Executive: : 1930 Requested by: Sara Nelson Order Number: [id number] Reading MD: FELIPE CAMPO Intervals [place] Rate: 65 P: 999 PA: 0 QRS: 72 QRSD: 98 T: 122 QT: 410 QTc: 421 Interpretive Statements ATRIAL FIBRILLATION ST DEVIATION AND MODERATE T-WAVE ABNORMALITY, CONSIDER ANTERIOR ISCHEMIA Electronically Signed On 03-20-17 12:56:11 CDT by FELIPE CAMPO [email or web address]
--- NOTE | 2017-03-19 08:42 | CT Report ---
History: Shortness of breath. Amiodarone therapy Date: 03/19/2017 Study: High-resolution CT chest without IV contrast Comparison exam: CT chest February 03, [address] sections were obtained at 10 mm intervals without IV contrast. Edge enhancement algorithm was utilized. The CT exam was performed using one or more of the following dose reduction techniques: Automated exposure control, adjustment of the mA and/or kV according to patient size, or use of iterative reconstruction technique. There are mixed changes of centrilobular and paraseptal emphysema, more so in the upper lung zones. There is some nonspecific patchy and hazy infiltrate in the left upper lobe, lateral to the hilum, extending into the lingula. There is some mild platelike atelectatic change more inferiorly in the lingula. There is more dense parenchymal consolidation in the left lower lobe with atelectatic component as well. There is mild bilateral pleural effusion. The parenchymal disease is not grossly of increased density. There is mild bilateral pleural effusion. There is prominent coronary artery calcification involving the left main, left anterior descending, and left circumflex coronary arteries. The patient is status post prior median sternotomy. Impression: Nonspecific left upper lobe and left lower lobe patchy and hazy infiltrate. This could represent pneumonia. Amiodarone toxicity can present as an area of parenchymal consolidation and patchy opacity as well. Centrilobular and paraseptal emphysema Mild bilateral pleural effusion PROCEDURE INTERPRETED AT [facility] DEPARTMENT OF RADIOLOGY Final Report Signed by: Dr. Priya Allen
--- NOTE | 2017-03-19 09:12 | Ultrasound Report ---
History: Abdominal pain. Abdominal mass versus hernia Date: 03/19/2017 Study: Right upper quadrant abdominal ultrasound Comparison exam: Noncontrast CT abdomen and pelvis February 25, 2015 Real-time ultrasound images are captured and archived. The gallbladder is surgically absent. The liver is normal in size at 15.7 cm length and is without focal mass lesion. There is no abnormal biliary dilatation. The common bile duct measures 3.9 mm diameter. The pancreas is obscured by bowel gas. The right kidney measures 10.9 cm length and is without focal mass or hydronephrosis. No obvious right upper quadrant hernia is seen. Impression: No mass or obvious right upper quadrant hernia is seen. Prior cholecystectomy. Otherwise generally negative right upper quadrant ultrasound as discussed above PROCEDURE INTERPRETED AT [facility] DEPARTMENT OF RADIOLOGY Final Report Signed by: Dr. Priya Allen
[2017-03-19] MEDS: ISOSORBIDE MONONITRATE 60 MG TABLET PO SCH (10:06)
[2017-03-19] MEDS: PANTOPRAZOLE 40 MG TABLET PO SCH (10:06)
[2017-03-19] MEDS: ASPIRIN CHEW 81 MG TABLET PO SCH (10:07)
[2017-03-19] MEDS: CLOPIDOGREL 75 MG TABLET PO SCH (10:07)
[2017-03-19] MEDS: INSULIN REGULAR 100 UNIT/ML SUBCUT SCH ×4 (10:07→21:30)
[2017-03-19] MEDS: FUROSEMIDE 40 MG/4 ML VIAL IV SCH ×2 (10:07→15:38)
[2017-03-19] MEDS ORDERED: methylPREDNISolone SOD SUC 125 MG/2 ML VIAL IV SCH (11:30)
--- NOTE | 2017-03-19 12:43 | Nephrology Consult Note ---
History of Present Illness Chief complaint: Increased BUN and creatinine History of present illness: Mr. Mcdonald is a 86 year old male who was admitted with shortness of breath. The patient states he has been having shortness of breath for the past year. He states it got worse last night and subsequently came to the hospital for further evaluation and treatment. The patient was recently started on home O2 at night. The patient states he has been unable to get comfortable with his breathing whether he sits up in the recliner or propped up in bed. Patient also states he has had some increased cough lately productive of yellow sputum. He also reports a mildly increased temperature of around 99.7 last night which is higher than his usual baseline. Patient does report some swelling in his lower extremities. ROS: Head -positive headaches ENT - denies sore throat Lymphatics - denies lymphadenopathy Hematology - denies bleeding problems Heart - denies chest pain Lungs -positive shortness of breath Abdomen - denies abdominal pain Musculoskeletal - denies arthritis Skin - denies rash Neurology - denies stroke General -reports low-grade fever PE: General: in no acute distress Eyes: Pupils are round and reactive, conjunctivae are clear ENT: Nose is clear, O/P is benign Neck: Supple, no thyromegaly Lymphatics: No cervical, supraclavicular or axillary adenopathy Heart: Regular rate and rhythm, 1-2+ pretibial edema Lungs: Has some rales and rhonchi heard on the left side, chest expansion symmetric Abdomen: Soft, normoactive bowel sounds, no hepatomegaly Musculoskeletal: No joint erythema or effusions or joint asymmetry Skin: Normal turgor, normal hydration, no rash Neuro/Psych: Alert and cooperative with fair insight Home Medications Medication Instructions Recorded Confirmed Type Amiodarone Tab [Cordarone Tab] 200 mg PO BEDTIME 05/06/15 03/18/17 History Amlodipine Besylate 1 tablet PO QPM 05/06/15 03/18/17 History Aspirin Chew Tab 1 tablet PO QAM 05/06/15 03/18/17 History Atorvastatin Calcium 40 mg PO QPM 05/06/15 03/18/17 History Docusate Sodium Cap [Colace Cap] 100 mg PO BID 05/06/15 03/18/17 History Furosemide Tab [Lasix Tab] 80 mg PO BID DIURETIC 05/06/15 03/18/17 History Hydralazine HCl 25 mg PO BID 05/06/15 03/18/17 History Isosorbide Mononitrate [Imdur] 60 mg PO QAM 05/06/15 03/18/17 History Pantoprazole Tab [Protonix Tab] 40 mg PO BEDTIME 05/06/15 03/18/17 History glipiZIDE [Glucotrol] 10 mg PO BIDAC 05/06/15 03/18/17 History Insulin Glargine [Lantus] 15 unit SUBCUT BEDTIME 01/30/16 03/18/17 History Albuterol Inhaler [Proventil 2 puff INH Q6H PRN #1 inhaler 10/15/16 03/18/17 Rx Inhaler] Clopidogrel Bisulfate [Clopidogrel] 75 mg PO QAM 01/01/17 03/18/17 History Polyethylene Glycol Powder 17 gm PO QAM 02/16/17 03/18/17 History [Miralax] Nitroglycerin [Nitroglycerin SL 0.4 mg SL Q5M PRN 03/02/17 03/18/17 History Tab] Doxazosin Mesylate 1 mg PO DAILY 03/18/17 03/18/17 History Pramipexole Di-HCl [Pramipexole 0.5 mg PO BEDTIME 03/18/17 03/18/17 History Dihydrochloride] Allergies Allergy/AdvReac Type Severity Reaction Status Date / Time No Known Allergies Allergy Verified 03/18/17 08:56 Medical,Surgical,& Family Hx - Medical History Cardio: History of: Cardiac Dysrhythmia, CHF, CAD (Facilitated PCI 03/02/2017 as described above), Hypertension, Valvular Heart Disease (replacement), Cardiovascular Problems (stents placed 3 weeks ago, paroxysmal atrial fibrillation) Neurology: No history of: Seizures Endocrine: History of: Diabetes Mellitus (IDDM), Dyslipidemia Respiratory: History of: COPD, Intubation, Pneumonia Renal: History of: Renal Problems (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, kidney failure) Genitourinary: History of: Prostate Problems Gastrointestinal: History of: GERD, Polyps Hematology: History of: Bleeding Problems (Takes blood thinner) - Surgical History Cardiac Surgeries: Sugical HX of: Femoral-Popliteal Bypass Graft, Cardiac Catheterization, Cardiac Surgery (CABG Valve Replacement) Neurologic Surgeries: Patient denies: Neurologic Surgery Abdominal Surgeries: Surgical HX of: Appendectomy, Cholecystectomy, Colonoscopy Reproductive Surgeries: Surgical HX of;: Prostate Surgery - Family History Family History: Reports;: Family Cancer, Family Diabetes, Family Heart Disease - Social History Smoking Status: Former smoker (Quit 45 years ago) Frequency of Alcohol Use: None Type of Drug Use: None Exam - Vital Signs Vital signs: Period Temp Pulse Resp BP Sys/Lea Pulse Ox Last 24 Hr 97.9 F-99.4 F 67-86 19-20 101-143/51-78 94-97 Results - Labs CBC & BMP: 03/19/17 04:08 03/19/17 04:08 Assessment and Plan (1) Acute exacerbation of congestive heart failure Status: Acute Assessment and plan: This patient presents with shortness of breath and paroxysmal nocturnal dyspnea , he is also been having increased cough productive of yellow sputum and reports a low-grade temperature for him. I agree with the Lasix as ordered but would also consider covering with some antibiotic therapy. This was discussed with Dr. Ojeda. Current Visit: Yes (2) Bradycardia Status: Acute Assessment and plan: This seems to have resolved his heart rate is in the 70s presently Current Visit: Yes (3) Hypoxemia Status: Acute Current Visit: Yes (4) Atrial fibrillation Status: Chronic Current Visit: Yes Qualifiers: Atrial fibrillation type: paroxysmal Qualified Code(s): I48.0 - Paroxysmal atrial fibrillation (5) Renal insufficiency Status: Chronic Assessment and plan: Patient's creatinine is slightly increased from a creatinine of 2 mg/dL a few months ago although in the past the patient has had a creatinine this time. His creatinine today is improved to 2.2 from 2.4 mg/dL at presentation. We will continue to monitor this. Current Visit: Yes (6) Coronary artery arteriosclerosis Status: Chronic Current Visit: No (7) Diabetes mellitus type 2 in nonobese Status: Chronic Current Visit: No (8) Hypertension Status: Chronic Assessment and plan: Patient's blood pressure is at the low end of normal, will monitor this for now he may need a decrease in his amlodipine as we diurese him. Current Visit: No Qualifiers: Hypertension type: essential hypertension Qualified Code(s): I10 - Essential (primary) hypertension
--- NOTE | 2017-03-19 14:40 | Hospitalist Progress Note ---
Assessment and Plan (1) Pneumonia Status: Acute Assessment and plan: cefepime Current Visit: Yes (2) Diabetes mellitus type 2 in nonobese Status: Chronic Assessment and plan: cont lantus 15 units Current Visit: No (3) History of aortic valve replacement with bioprosthetic valve Status: Chronic Current Visit: No (4) Acute exacerbation of congestive heart failure Status: Acute Assessment and plan: cont lasix 40 mg IV every 12 hours. Current Visit: Yes (5) Atrial fibrillation Status: Chronic Assessment and plan: Amiodarone was stopped by cardiology. Currently rate controlled Current Visit: Yes Qualifiers: Atrial fibrillation type: paroxysmal Qualified Code(s): I48.0 - Paroxysmal atrial fibrillation (6) History of hypertension Status: Chronic Assessment and plan: cont norvasc Current Visit: Yes (7) Right upper quadrant abdominal pain Status: Acute Assessment and plan: Ultrasound no ductal dilatation appreciated Current Visit: Yes Hospitalist: Subjective Interval history: Dr. Tinsley and I discussed this case. He is concerned about possible pneumonia and I agree. We will start her on cefepime today. Exam - Constitutional Vitals: Period Temp Pulse Resp BP Sys/Lea Pulse Ox Last 24 Hr 97.9 F-99.4 F 72-86 19-20 101-143/51-78 94-97 Exam: Heart Rate-[IRR] Lungs-[bilateral rhonchi worse on left GI-[+bs soft, NT] Ext-[1+ edema] Neuro [Motor 5/5], [alert and oriented times 1] psych [depressed mood and flat affect] General [mild acute distress] Results - Labs CBC & BMP: 03/19/17 04:08 03/19/17 04:08 Lab Results: I have reviewed the past 24 hour labs - Diagnostic Findings Procedure: Chest x-ray: report reviewed by me (Left basilar pneumonia ), CT - chest: report reviewed by me (FELICIA and LLL infiltrate ), Ultrasound: report reviewed by me (no abnormal bile duct dilatation) Quality Measures - VTE Contraindication to Pharmacological VTE Prophylaxis: Already on Theraputic Agent , No Prophylaxis Needed
[2017-03-19] MEDS: methylPREDNISolone SOD SUC 125 MG/2 ML VIAL IV SCH (15:38)
--- NOTE | 2017-03-19 16:24 | Cardiology Progress Note ---
Forest Dickson Vanessa, RN, am scribing for, and in the presence of, Ellis Bangura MD 16:24. Assessment and Plan - Time spent with patient Time spent with patient: Greater than 30 minutes (1) Acute exacerbation of congestive heart failure Status: Acute Current Visit: Yes (2) Bradycardia Status: Acute Current Visit: Yes (3) History of hypertension Status: Chronic Assessment and plan: Blood pressure is well controlled at this time. Continue current medication regimen. Current Visit: Yes (4) Hypoxemia Status: Acute Assessment and plan: Hypoxemia at rest. PFTs have been ordered and are pending. Current Visit: Yes (5) Right upper quadrant abdominal pain Status: Acute Current Visit: Yes (6) Atrial fibrillation Status: Chronic Assessment and plan: Rate controlled with amiodarone. This is currently being held pending workup for dyspnea. Current Visit: Yes Qualifiers: Atrial fibrillation type: paroxysmal Qualified Code(s): I48.0 - Paroxysmal atrial fibrillation (7) Renal insufficiency Status: Chronic Assessment and plan: Creatinine 2.1 with GFR of 34. Baseline creatinine clearance 30-59. ALTAGRACIA inhibitors and ARB's are avoided due to renal insufficiency. Current Visit: Yes (8) Coronary artery arteriosclerosis Status: Chronic Assessment and plan: Clinically, he is without finding for ACS at this time. Current Visit: No (9) Diabetes mellitus type 2 in nonobese Status: Chronic Assessment and plan: Continue current plan of care. Current Visit: No (10) Dyslipidemia Status: Chronic Assessment and plan: Continue lipid-lowering agent. Current Visit: No (11) History of aortic valve replacement with bioprosthetic valve Status: Chronic Current Visit: No Cardiology - PN: Subj Interval history: PRIMARY CARDIOLOGY: DR. FERMIN PCP: DR. CHANG SUMMARY: Mr. Mcdonald is an 86 year old white male with risk factors signficant for: age, hypertension, diabetes, known CAD with previous PCI, dyslipidemia, obesity, former smoker. Past medical history includes previous CABG, AVR, iscehmic mitral regurgitation, hypothyroidism, diastolic dyfunction, chronic kidney disease. Earlier this year in February, he underwent facilitated PCI with use of Impella for progressive heart failure symptoms. He had high-grade distal left main, ostial left circumflex, ostial ramus intermedius, and ostial LAD disease which were all treated using a total of 5 drug-eluting stents. Patient seemed to do better afterward, and was without significant complaint on March 09 at follow-up visit at [facility] clinic. Patient presented to the emergency room on March 18 complaining of progressive dyspnea, mildly elevated BNP at 509. Chest x-ray with chronic lung changes and congestion. [facility] medicine for IV diuresis and further treatment of CHF exacerbation. Amiodarone has been held. Anticoagulation held due to decreased hemoglobin of 9.2. CT of chest with left upper and lower lobe patchy/hazy infiltrates suggestive of pneumonia but could not rule out relation to amiodarone toxicity. MARCH 19, 2017: PFT's have been ordered, and during rounds patient is in cardiopulmonary department for completion of this procedure. We will follow-up. I agree with the plans for workup. The patient may well have a pneumonitis is on appropriate treatment for that. Will continue close follow-up. Exam (Progress Note) - Constitutional Vitals: Period Temp Pulse Resp BP Sys/Lea Pulse Ox Last 24 Hr 97.9 F-99.4 F 67-79 19-20 117-143/59-78 94-97 Exam: General: Present: Other (Appears chronically ill appears depressed) HEENT: Present: PERRL, Normocephaly. Absent: Pallor Neck: Present: Supple Neck, Midline Trachea Cardiac: Present: Reg Rate and Rhythm, S1/S2 (Murmur of aortic prosthesis). Absent: S4 Lungs: Present: Normal Exam (He has no rales.) Neuro: Present: Cranial Nerve 2-12 Intact, Motor Function Intact Abdomen: Present: Soft, Active Bowel Sounds, No Masses, Distended Skin: Present: Clear. Absent: Rash, Wound Extremities: Present: +1 Edema (Slightly worse on the left, no pretibial edema on the right) Result/EKG - Labs CBC & BMP: 03/19/17 04:08 03/19/17 04:08 Lab Results: I have reviewed the past 24 hour labs Labs: Laboratory Results - last 24 hr 03/18/17 03/18/17 03/18/17 09:07 09:07 16:26 WBC RBC Hgb Hct MCV MCH MCHC RDW Plt Count MPV Neut % (Auto) Lymph % (Auto) [place] % (Auto) Eos % (Auto) Baso % (Auto) Neut # (Auto) Lymph # (Auto) [place] # (Auto) Eos # (Auto) Baso # (Auto) Immature Gran % Nucleated RBC % Immature Gran # Nucleated RBCs # ABG pH ABG pCO2 ABG pO2 ABG HCO3 ABG Total CO2 ABG O2 Saturation ABG Base Excess Sodium Potassium Chloride Carbon Dioxide Anion Gap BUN Creatinine GFR Calculation BUN/Creatinine Ratio Glucose POC Glucose 120 H Calculated Osmolality Calcium Magnesium 2.6 H Iron TIBC % Saturation Ferritin Total Bilirubin 0.70 Direct Bilirubin 0.30 H Indirect Bilirubin 0.4 AST 19 ALT 26 Alkaline Phosphatase 62 Total Protein 7.1 Albumin 3.8 Globulin Albumin/Globulin Ratio 03/18/17 03/18/17 03/19/17 20:04 22:04 04:07 WBC RBC Hgb Hct MCV MCH MCHC RDW Plt Count MPV Neut % (Auto) Lymph % (Auto) [place] % (Auto) Eos % (Auto) Baso % (Auto) Neut # (Auto) Lymph # (Auto) [place] # (Auto) Eos # (Auto) Baso # (Auto) Immature Gran % Nucleated RBC % Immature Gran # Nucleated RBCs # ABG pH 7.421 ABG pCO2 48.3 H ABG pO2 70.7 L ABG HCO3 29.9 H ABG Total CO2 28.9 H ABG O2 Saturation 94.3 L ABG Base Excess 6.1 H Sodium Potassium Chloride Carbon Dioxide Anion Gap BUN Creatinine GFR Calculation BUN/Creatinine Ratio Glucose POC Glucose 124 H Calculated Osmolality Calcium Magnesium Iron 16 L TIBC 337 % Saturation 4.7 L Ferritin 41.5 Total Bilirubin Direct Bilirubin Indirect Bilirubin AST ALT Alkaline Phosphatase Total Protein Albumin Globulin Albumin/Globulin Ratio 03/19/17 03/19/17 03/19/17 04:08 04:08 08:44 WBC 7.7 RBC 3.46 L Hgb 9.2 L Hct 29.6 L MCV 85.5 L MCH 27 MCHC 31.1 L RDW 14.5 Plt Count 196 MPV 10.7 Neut % (Auto) 61.6 Lymph % (Auto) 29.6 [place] % (Auto) 7.2 Eos % (Auto) 0.4 Baso % (Auto) 0.5 Neut # (Auto) 4.7 Lymph # (Auto) 2.3 [place] # (Auto) 0.6 Eos # (Auto) 0.0 Baso # (Auto) 0.0 Immature Gran % 0.7 Nucleated RBC % 0.0 Immature Gran # 0.05 Nucleated RBCs # 0.00 ABG pH ABG pCO2 ABG pO2 ABG HCO3 ABG Total CO2 ABG O2 Saturation ABG Base Excess Sodium 142 Potassium 3.5 Chloride 102 Carbon Dioxide 32 Anion Gap 11.5 BUN 32 H Creatinine 2.10 H GFR Calculation 34 BUN/Creatinine Ratio 15.00 Glucose 77 POC Glucose 92 Calculated Osmolality 288.1 Calcium 8.5 Magnesium Iron TIBC % Saturation Ferritin Total Bilirubin 0.70 Direct Bilirubin Indirect Bilirubin AST 22 ALT 23 Alkaline Phosphatase 55 Total Protein 6.3 L Albumin 3.2 L Globulin 3.1 Albumin/Globulin Ratio 1.0 L - Diagnostic Findings Procedure: Chest x-ray: image reviewed by me, report reviewed by me - EKG EKG results: interpreted by me, no acute changes EKG shows: atrial fibrillation Quality Measures - VTE Contraindication to Pharmacological VTE Prophylaxis: Already on Theraputic Agent , No Prophylaxis Needed Willem Dickson Wesley, MD, personally performed the services described in this documentation, ascribed by Esther Garg RN in my presence, and it is both accurate and complete [id number] .
[2017-03-19] MEDS: CEFEPIME 2,000 MG in SODIUM CHLORIDE 0.9% 100 ML IV SCH (16:31)
[2017-03-19] MEDS: ALBUTEROL/IPRATROPIUM 3 ML NEB RESP TX SCH ×2 (18:35→20:16)
[2017-03-19] MEDS: ATORVASTATIN 40 MG TABLET PO SCH (18:36)
[2017-03-19] MEDS: PRAMIPEXOLE 0.25 MG TABLET PO SCH (21:17)
[2017-03-19] MEDS: amLODIPine 10 MG TABLET PO SCH (21:18)
[2017-03-19] MEDS: POLYETHYLENE GLYCOL POWDER 17 GM PACK PO SCH (21:24)
[2017-03-19] MEDS: INSULIN GLARGINE 100 UNIT/ML SUBCUT SCH (21:29)
[2017-03-20] MEDS: ALBUTEROL/IPRATROPIUM 3 ML NEB RESP TX SCH ×5 (00:26→23:25)
[2017-03-20] MEDS: CEFEPIME 2,000 MG in SODIUM CHLORIDE 0.9% 100 ML IV SCH ×2 (03:40→16:08)
[2017-03-20] MEDS: methylPREDNISolone SOD SUC 125 MG/2 ML VIAL IV SCH ×2 (03:40→16:09)
[2017-03-20 08:14] LABS: Calcium 8.4 MG/DL (8.5-10.1); Osmolality,Calculated 297.7 MOS/KG (273-304); Potassium 3.4 MMOL/L (3.5-5.1)
[2017-03-20] MEDS: POLYETHYLENE GLYCOL POWDER 17 GM PACK PO SCH (09:46)
[2017-03-20] MEDS: FUROSEMIDE 40 MG/4 ML VIAL IV SCH (09:47)
[2017-03-20] MEDS: ASPIRIN CHEW 81 MG TABLET PO SCH (09:47)
[2017-03-20] MEDS: PANTOPRAZOLE 40 MG TABLET PO SCH (09:47)
[2017-03-20] MEDS: CLOPIDOGREL 75 MG TABLET PO SCH (09:47)
[2017-03-20] MEDS: ISOSORBIDE MONONITRATE 60 MG TABLET PO SCH (09:47)
[2017-03-20] MEDS: INSULIN REGULAR 100 UNIT/ML SUBCUT SCH ×4 (09:47→20:40)
--- NOTE | 2017-03-20 12:31 | Nephrology Progress Note ---
Nephrology - PN: Subj Interval history: Patient states he is breathing better, But unable to get up much of the congestion in his chest. Review of systems GI denies nausea or vomiting, general-the patient states he has been up moving about some he denies any dizziness, cardiac-patient had a heart catheterization about a month ago he has decompensated cardiomyopathy per the report with mostly diastolic dysfunction. Physical exam general patient is chronically ill-appearing, lungs are clear on the right left has some coarse breath sounds but is much improved from yesterday., He has trace to 1+ pretibial edema Assessment/plan 1. Chronic kidney disease stage III-patient's creatinine is increased to 2.7 from 2.2 mg/dL yesterday. I think this may be related to his diuresis, I think we should probably hold his Lasix for the next 24 hours or so. 2. Shortness of breath-patient states his breathing is better, I reviewed his chest x-rays again it would seem his right lung is more clear his left lung showed some patchy infiltrates per the report, I think we are probably dealing more with a pneumonia than a congestive heart failure problem here presently. Agree with the continued antibiotics and again would recommend holding the Lasix and deference to his increased creatinine 3. Hypertension this is controlled 4. Hypokalemia-I am going to give the patient 20 mEq of KCl. Exam (PN)-Nephrology - Vital Signs Vital signs: Period Temp Pulse Resp BP Sys/Lea Pulse Ox Last 24 Hr 97.6 F-98.6 F 50-79 18-22 105-125/50-62 93-97 - Lab 03/19/17 04:08 03/20/17 05:32 Most recent lab results ABG pH 7.421 (7.35-7.45) 03/18/17 22:04 ABG pCO2 48.3 MM HG (35-48) H 03/18/17 22:04 ABG pO2 70.7 MM HG (80-95) L 03/18/17 22:04 ABG HCO3 29.9 MMOL/L (20-26) H 03/18/17 22:04 ABG O2 Saturation 94.3 % (95-100) L 03/18/17 22:04 Calcium 8.4 MG/DL (8.5-10.1) L 03/20/17 05:32 Magnesium 2.6 MG/DL (1.8-2.4) H 03/18/17 09:07 Assessment and Plan (1) Acute exacerbation of congestive heart failure Status: Acute Assessment and plan: This patient presents with shortness of breath and paroxysmal nocturnal dyspnea , he is also been having increased cough productive of yellow sputum and reports a low-grade temperature for him. I agree with the Lasix as ordered but would also consider covering with some antibiotic therapy. This was discussed with Dr. Ojeda. Current Visit: Yes (2) Bradycardia Status: Acute Assessment and plan: This seems to have resolved his heart rate is in the 70s presently Current Visit: Yes (3) Hypoxemia Status: Acute Current Visit: Yes (4) Atrial fibrillation Status: Chronic Current Visit: Yes Qualifiers: Atrial fibrillation type: paroxysmal Qualified Code(s): I48.0 - Paroxysmal atrial fibrillation (5) Renal insufficiency Status: Chronic Assessment and plan: Patient's creatinine is slightly increased from a creatinine of 2 mg/dL a few months ago although in the past the patient has had a creatinine this time. His creatinine today is improved to 2.2 from 2.4 mg/dL at presentation. We will continue to monitor this. Current Visit: Yes (6) Coronary artery arteriosclerosis Status: Chronic Current Visit: No (7) Diabetes mellitus type 2 in nonobese Status: Chronic Current Visit: No (8) Hypertension Status: Chronic Assessment and plan: Patient's blood pressure is at the low end of normal, will monitor this for now he may need a decrease in his amlodipine as we diurese him. Current Visit: No Qualifiers: Hypertension type: essential hypertension Qualified Code(s): I10 - Essential (primary) hypertension
[2017-03-20] MEDS ORDERED: POTASSIUM CHLORIDE 20 MEQ TABLET PO ONE ×2 (12:36→16:09)
[2017-03-20 14:13] LABS: Apearance,Urine CLEAR (Clear); Bacteria,Urine Occasional /HPF (Few); Bilirubin,Urine Negative (Negative); Blood, Urine Negative (Negative); Glucose,Urine (UA) 50 mg/dL (Negative); Ketones,Urine Negative (Negative); Nitrite,Urine Negative (Negative); Protein,Urine Negative; Urine Color Yellow (Yellow); Urine Specific Gravity 1.009 (1.001-1.035); Urine Urobilinogen < 2.0 EU/DL (0.2-1.0); WBC,Urine 2 /HPF (0-6)
--- NOTE | 2017-03-20 15:52 | Cardiology Progress Note ---
Forest Dickson Vanessa, RN, am scribing for, and in the presence of, Ellis Bangura MD 15:52. Assessment and Plan - Time spent with patient Time spent with patient: Greater than 30 minutes (1) Acute exacerbation of congestive heart failure Status: Acute Assessment and plan: He is being gently diuresed and is also being treated for possible pneumonia. Current Visit: Yes (2) Bradycardia Status: Acute Assessment and plan: Transient bradycardia with pulse rate 50. Rate lowering medications are being held at this time. Current Visit: Yes (3) History of hypertension Status: Chronic Assessment and plan: Blood pressure is well controlled at this time. Continue current medication regimen. As noted, he may require some adjustments in regimen as needed while diuresing. Current Visit: Yes (4) Hypoxemia Status: Acute Assessment and plan: Hypoxemia at rest. PFTs were unable to be completed yesterday as patient experienced some moderate shortness of breath. Current Visit: Yes (5) Right upper quadrant abdominal pain Status: Acute Current Visit: Yes (6) Atrial fibrillation Status: Chronic Assessment and plan: Rate controlled with amiodarone. This is currently being held pending workup for dyspnea. Current Visit: Yes Qualifiers: Atrial fibrillation type: paroxysmal Qualified Code(s): I48.0 - Paroxysmal atrial fibrillation (7) Renal insufficiency Status: Chronic Assessment and plan: Creatinine slightly increased to 2.7 today. Baseline creatinine clearance 30- 59. ALTAGRACIA inhibitors and ARB's are avoided due to renal insufficiency. Nephrology is also following patient. Current Visit: Yes (8) Coronary artery arteriosclerosis Status: Chronic Assessment and plan: Clinically, he is without finding for ACS at this time. Current Visit: No (9) Diabetes mellitus type 2 in nonobese Status: Chronic Assessment and plan: Continue current plan of care. Accucheck glucose levels greater than 400 this morning. Current Visit: No (10) Dyslipidemia Status: Chronic Assessment and plan: Continue lipid-lowering agent. Current Visit: No (11) History of aortic valve replacement with bioprosthetic valve Status: Chronic Current Visit: No Cardiology - PN: Subj Interval history: PRIMARY CARDIOLOGY: DR. FERMIN PCP: DR. CHANG SUMMARY: Mr. Mcdonald is an 86 year old white male with risk factors signficant for: age, hypertension, diabetes, known CAD with previous PCI, dyslipidemia, obesity, former smoker. Past medical history includes previous CABG, AVR, iscehmic mitral regurgitation, hypothyroidism, diastolic dyfunction, chronic kidney disease. Earlier this year in February, he underwent facilitated PCI with use of Impella for progressive heart failure symptoms. He had high-grade distal left main, ostial left circumflex, ostial ramus intermedius, and ostial LAD disease which were all treated using a total of 5 drug-eluting stents. Patient seemed to do better afterward, and was without significant complaint on March 09 at follow-up visit at [facility] clinic. Patient presented to the emergency room on March 18 complaining of progressive dyspnea, mildly elevated BNP at 509. Chest x-ray with chronic lung changes and congestion. [facility] for IV diuresis and further treatment of CHF exacerbation. Amiodarone has been held. Anticoagulation held due to decreased hemoglobin of 9.2. CT of chest with left upper and lower lobe patchy/hazy infiltrates suggestive of pneumonia but could not rule out relation to amiodarone toxicity. March: Patient has been started on IV antibiotics as chest x-ray revealed left basilar atelectasis suspicious for pneumonia. Patient feels somewhat better today. He is experiencing some exertional dyspnea and requires supplemental O2 via nasal cannula. No chest pain, palpitations, orthopnea. Atrial fibrillation per cardiac monitoring with pulse rate in the 70s. He did have some bradycardia earlier this morning with pulse rate of 50. Labs reviewed. Potassium 3.4. Creatinine 2.7 (increased from 2.1 yesterday) with GFR 24. Systolic BP 105-125. Diuresing fairly well with IV Lasix. Noted that PFTs were unable to be completed yesterday as patient was too dyspneic and procedure had to be canceled. I am going to go ahead and stop his Lasix and check a chest x-ray in the morning. Exam (Progress Note) - Constitutional Vitals: Period Temp Pulse Resp BP Sys/Lea Pulse Ox Last 24 Hr 97.9 F-98.6 F 50-86 18-20 101-125/50-62 93-97 Exam: General: Present: Other (Appears chronically ill and depressed) HEENT: Present: PERRL, Normocephaly. Absent: Pallor Neck: Present: Supple Neck, Midline Trachea Cardiac: Present: Reg Rate and Rhythm, S1/S2 (Murmur of aortic prosthesis). Absent: S4 Lungs: Present: fine wheeze expirationally; no rales, rhonchi Neuro: Present: Cranial Nerve 2-12 Intact, Motor Function Intact Abdomen: Present: Soft, Active Bowel Sounds, No Masses, Distended Skin: Present: Clear, warm, dry. Absent: Rash, Wound, suspicious lesion Extremities: Present: +1 Edema, nonpitting (Slightly worse on the left, no pretibial edema on the right) Result/EKG - Labs CBC & BMP: 03/19/17 04:08 03/20/17 05:32 Lab Results: I have reviewed the past 24 hour labs Labs: Laboratory Results - last 24 hr 03/19/17 03/19/17 03/19/17 11:39 17:27 21:23 Sodium Potassium Chloride Carbon Dioxide Anion Gap BUN Creatinine GFR Calculation BUN/Creatinine Ratio Glucose POC Glucose 186 H 208 H 474 H Calculated Osmolality Calcium 03/20/17 03/20/17 00:18 05:32 Sodium 138 Potassium 3.4 L Chloride 97 L Carbon Dioxide 31 Anion Gap 13.4 BUN 52 H Creatinine 2.70 H GFR Calculation 24 BUN/Creatinine Ratio 19.00 Glucose 260 H POC Glucose 373 H Calculated Osmolality 297.7 Calcium 8.4 L - EKG EKG results: interpreted by me, no acute changes EKG shows: atrial fibrillation Quality Measures - VTE Contraindication to Pharmacological VTE Prophylaxis: Already on Theraputic Agent , No Prophylaxis Needed IWillem Wesley, MD, personally performed the services described in this documentation, ascribed by Esther Garg RN in my presence, and it is both accurate and complete [id number] .
--- NOTE | 2017-03-20 16:12 | Hospitalist Progress Note ---
Assessment and Plan (1) Pneumonia Status: Acute Assessment and plan: Continue cefepime and continue duo nebs Current Visit: Yes (2) Diabetes mellitus type 2 in nonobese Status: Chronic Assessment and plan: Blood sugar is way too high on steroids. Will stop steroids and increase Lantus to 25 units at bedtime Current Visit: No (3) History of aortic valve replacement with bioprosthetic valve Status: Chronic Current Visit: No (4) Acute exacerbation of congestive heart failure Status: Acute Assessment and plan: Stop the Lasix repeat chest x-ray. Current Visit: Yes (5) Atrial fibrillation Status: Chronic Assessment and plan: Amiodarone discontinued due to bradycardia Current Visit: Yes Qualifiers: Atrial fibrillation type: paroxysmal Qualified Code(s): I48.0 - Paroxysmal atrial fibrillation (6) History of hypertension Status: Chronic Assessment and plan: controlled with Norvasc Current Visit: Yes (7) Right upper quadrant abdominal pain Status: Acute Assessment and plan: Ultrasound no ductal dilatation appreciated Current Visit: Yes (8) Hypokalemia Status: Acute Assessment and plan: 20 mEq 2 Current Visit: Yes (9) Chronic renal failure, stage 3 (moderate) Status: Acute Assessment and plan: Creatinine stable Dr. Tinsley monitoring Current Visit: Yes Hospitalist: Subjective Interval history: Discussed case with both Dr. Bangura and Dr. Tinsley. Dr. Bangura will stop his Lasix and repeat a chest x-ray. Patient seems like he feels better today. He seems less short of breath. Daughter is at bedside uptake given. Blood sugar is way too high on the steroids had to stop. Exam - Constitutional Vitals: Period Temp Pulse Resp BP Sys/Lea Pulse Ox Last 24 Hr 97.6 F-98.2 F 50-79 18-22 105-125/50-60 93-98 Exam: Heart Rate-[RRR] Lungs-[clear GI-[+bs soft, NT] Ext-[no edema] Neuro [Motor 5/5], [alert and oriented times 1] psych [depressed mood and flat affect] General [no acute distress] Results - Labs CBC & BMP: 03/19/17 04:08 03/20/17 05:32 Lab Results: I have reviewed the past 24 hour labs Labs: Stool negative for blood 2, UA negative for infection - Diagnostic Findings Procedure: Ultrasound: report reviewed by me (Unremarkable right upper quadrant abdominal) Quality Measures - VTE Contraindication to Pharmacological VTE Prophylaxis: Already on Theraputic Agent , No Prophylaxis Needed
--- NOTE | 2017-03-20 17:22 | XRay Report ---
2 view chest. Indication: Left lower lobe infiltrates. Comparison: March 19, 2017. The heart is enlarged. Postmedian sternotomy. There is calcific plaque present within the aortic knob. The pulmonary vasculature is normal. The right lung is clear. There is persistent elevation of the left hemidiaphragm. There is partial clearing of the infiltrate at the left lung base. There is worsening gaseous distention of bowel. Impression: Interval improvement of the left basilar pneumonia. Worsening bowel distention. PROCEDURE INTERPRETED AT [facility] DEPARTMENT OF RADIOLOGY Final Report Signed by: Dr. Radha Ospina
[2017-03-20] MEDS: ATORVASTATIN 40 MG TABLET PO SCH (18:02)
[2017-03-20] MEDS: INSULIN GLARGINE 100 UNIT/ML SUBCUT SCH (20:40)
[2017-03-20] MEDS: PRAMIPEXOLE 0.25 MG TABLET PO SCH (20:41)
[2017-03-20] MEDS: amLODIPine 10 MG TABLET PO SCH (20:41)
[2017-03-21] MEDS: CEFEPIME 2,000 MG in SODIUM CHLORIDE 0.9% 100 ML IV SCH ×2 (03:04→15:22)
[2017-03-21 07:00] LABS: Basophils % 0.1 % (0.0-0.8); Hematocrit 28.5 VOL% (42.0-52.0); Hemoglobin 8.9 GM/DL (14.0-18.0); Immature Granulocytes % 0.7 %; Immature Granulocytes Absolute 0.13 #; Lymphocytes # 3.7 10*3/uL (1.4-4.0); Mean Corpuscular HGB Conc 31.2 GM/DL (32-36); Mean Corpuscular Hemoglobin 26 PG (27-34); Mean Corpuscular Volume 83.8 FL (87-102); Mean Platelet Volume 10.8 FL (9.6-12.0); Monocytes # 0.5 10*3/uL (0.11-0.8); Monocytes % 2.8 % (1.7-12.7); Neutrophils # 13.2 10*3/uL (1.4-7.4); Neutrophils % 75.4 % (38.7-73.9); Platelet Count 210 T/CUMM (130-400); Red Cell Distribution Width 14.5 % (9.3-17.3); White Blood Count 17.5 T/CUMM (4-12)
[2017-03-21 07:33] LABS: Calcium 8.9 MG/DL (8.5-10.1); Osmolality,Calculated 299.3 MOS/KG (273-304); Potassium 3.9 MMOL/L (3.5-5.1)
[2017-03-21] MEDS: ALBUTEROL/IPRATROPIUM 3 ML NEB RESP TX SCH ×3 (07:41→19:55)
[2017-03-21] MEDS ORDERED: FUROSEMIDE 40 MG/4 ML VIAL IV SCH (09:00)
[2017-03-21] MEDS: POLYETHYLENE GLYCOL POWDER 17 GM PACK PO SCH (09:28)
[2017-03-21] MEDS: INSULIN REGULAR 100 UNIT/ML SUBCUT SCH ×4 (09:28→20:32)
[2017-03-21] MEDS: CLOPIDOGREL 75 MG TABLET PO SCH (09:29)
[2017-03-21] MEDS: ISOSORBIDE MONONITRATE 60 MG TABLET PO SCH (09:29)
[2017-03-21] MEDS: ASPIRIN CHEW 81 MG TABLET PO SCH (09:29)
[2017-03-21] MEDS: PANTOPRAZOLE 40 MG TABLET PO SCH (09:29)
[2017-03-21] MEDS ORDERED: TUBERCULIN SKIN TEST 0.1 ML SYRINGE INTRADERM ONE (11:00)
--- NOTE | 2017-03-21 13:56 | Hospitalist Progress Note ---
Assessment and Plan (1) Pneumonia Status: Acute Assessment and plan: Continue cefepime and azithromycin, infiltrate improving on chest x-ray. Current Visit: Yes (2) Diabetes mellitus type 2 in nonobese Status: Chronic Assessment and plan: cont lantus Current Visit: No (3) History of aortic valve replacement with bioprosthetic valve Status: Chronic Current Visit: No (4) Acute exacerbation of congestive heart failure Status: Acute Assessment and plan: resolved Current Visit: Yes (5) Atrial fibrillation Status: Chronic Assessment and plan: rate controlled Current Visit: Yes Qualifiers: Atrial fibrillation type: paroxysmal Qualified Code(s): I48.0 - Paroxysmal atrial fibrillation (6) History of hypertension Status: Chronic Assessment and plan: controlled with Norvasc Current Visit: Yes (7) Right upper quadrant abdominal pain Status: Acute Assessment and plan: Ultrasound no ductal dilatation appreciated Current Visit: Yes (8) Hypokalemia Status: Acute Assessment and plan: resolved Current Visit: Yes (9) Chronic renal failure, stage 3 (moderate) Status: Acute Assessment and plan: chronic and stable renal failure Current Visit: Yes Hospitalist: Subjective Interval history: Patient's white count was elevated today due to high-dose steroids given to him yesterday which I have discontinued. I believe the white cell count is to steroid effect. Will add some atypical coverage. Patient looks great. Requiring less oxygen. Family would like him to go to [facility] for rehab. Exam - Constitutional Vitals: Period Temp Pulse Resp BP Sys/Lea Pulse Ox Last 24 Hr 97.4 F-98.6 F 53-77 16-20 111-130/48-68 94-99 Exam: Heart Rate-[RRR] Lungs-[clear GI-[+bs soft, NT] Ext-[no edema] Neuro [Motor 5/5], [alert and oriented times 3] psych [depressed mood and affect] General [no acute distress] Results - Labs CBC & BMP: 03/21/17 06:19 03/21/17 06:19 Lab Results: I have reviewed the past 24 hour labs Quality Measures - VTE Contraindication to Pharmacological VTE Prophylaxis: Already on Theraputic Agent , No Prophylaxis Needed
[2017-03-21] MEDS ORDERED: AZITHROMYCIN INJ 500 MG in SODIUM CHLORIDE 0.9% 250 ML IV SCH (15:00)
--- NOTE | 2017-03-21 15:03 | Cardiology Progress Note ---
Forest Dickson Vanessa, RN, am scribing for, and in the presence of, Ellis Bangura MD 15:03. Assessment and Plan - Time spent with patient Time spent with patient: Greater than 30 minutes (1) Acute exacerbation of congestive heart failure Status: Acute Assessment and plan: He is being gently diuresed and is also being treated for possible pneumonia. Current Visit: Yes (2) Bradycardia Status: Acute Assessment and plan: Transient bradycardia with pulse rate 50. Bradycardia is asymptomatic. Rate lowering medications are being held at this time. Current Visit: Yes (3) History of hypertension Status: Chronic Assessment and plan: Blood pressure is well controlled at this time. Continue current medication regimen. As noted, he may require some adjustments in regimen as needed while diuresing. Current Visit: Yes (4) Hypoxemia Status: Acute Assessment and plan: Hypoxemia at rest. PFTs were unable to be completed as he experienced moderate shortness of breath. Shortness of breath is improving, and he has required less supplemental oxygen. Current Visit: Yes (5) Right upper quadrant abdominal pain Status: Acute Current Visit: Yes (6) Atrial fibrillation Status: Chronic Assessment and plan: Rate controlled with amiodarone. Amiodarone has been held this admission as it could have contributed to hypoxemia. Current Visit: Yes Qualifiers: Atrial fibrillation type: paroxysmal Qualified Code(s): I48.0 - Paroxysmal atrial fibrillation (7) Renal insufficiency Status: Chronic Assessment and plan: Creatinine slightly increased to 2.9 today. Baseline creatinine clearance 30- 59. ALTAGRACIA inhibitors and ARB's are avoided due to renal insufficiency. Nephrology is also following patient. Current Visit: Yes (8) Coronary artery arteriosclerosis Status: Chronic Assessment and plan: Clinically, he is without finding for ACS at this time. Current Visit: No (9) Diabetes mellitus type 2 in nonobese Status: Chronic Assessment and plan: Continue current plan of care. Accucheck glucose levels greater than 400 yesterday, but regimen has been adjusted, and glucose checks are less than 200 today. Current Visit: No (10) Dyslipidemia Status: Chronic Assessment and plan: Continue lipid-lowering agent. Current Visit: No (11) History of aortic valve replacement with bioprosthetic valve Status: Chronic Current Visit: No Cardiology - PN: Subj Interval history: PRIMARY CARDIOLOGY: DR. FERMIN PCP: DR. CHANG SUMMARY: Mr. Mcdonald is an 86 year old white male with risk factors signficant for: age, hypertension, diabetes, known CAD with previous PCI, dyslipidemia, obesity, former smoker. Past medical history includes previous CABG, AVR, iscehmic mitral regurgitation, hypothyroidism, diastolic dyfunction, chronic kidney disease. Earlier this year in February, he underwent facilitated PCI with use of Impella for progressive heart failure symptoms. He had high-grade distal left main, ostial left circumflex, ostial ramus intermedius, and ostial LAD disease which were all treated using a total of 5 drug-eluting stents. Patient seemed to do better afterward, and was without significant complaint on March 09 at follow-up visit at [facility] clinic. Patient presented to the emergency room on March 18 complaining of progressive dyspnea, mildly elevated BNP at 509. Chest x-ray with chronic lung changes and congestion. Admitted to [facility] floor per hospital medicine for IV diuresis and further treatment of CHF exacerbation. Amiodarone has been held. Anticoagulation held due to decreased hemoglobin of 9.2. CT of chest with left upper and lower lobe patchy/hazy infiltrates suggestive of pneumonia but could not rule out relation to amiodarone toxicity. March: Chest x-ray yesterday evening reveals improvement of left basilar pneumonia. Patient continues to feel better, and he appears to continue to improve. No chest pain. Minimal shortness of breath, and he is not requiring supplemental oxygen as frequently. Pulse rate 60s and 70s, and he does have transient bradycardia in the 50s but is not symptomatic. Systolic BP 115-130 mmHg. Labs reviewed. WBC significantly elevated at 17,500 (received IV steroid yesterday- now discontinued). H&H 8.9 28.5, MCV 83.8. Potassium is 3.9. Creatinine 2.9 with GFR of 22. Clinically he is improved somewhat. We will review his lab work in the morning and likely resume his Lasix. his weight is up 2 kg today. We will probably start him back on diuretics tomorrow depending on how things look. Exam (Progress Note) - Constitutional Vitals: Period Temp Pulse Resp BP Sys/Lea Pulse Ox Last 24 Hr 97.4 F-98.6 F 53-77 16-20 111-130/48-68 94-99 Exam: General: Present: Other; appears chronically ill HEENT: Present: PERRL, Normocephaly. Absent: Pallor Neck: Present: Supple Neck, Midline Trachea Cardiac: Present: Reg Rate and Rhythm, S1/S2 (Murmur of aortic prosthesis). Absent: S4 Lungs: Present: Clear to auscultation bilaterally; no rales, rhonchi, wheeze Neuro: Present: Cranial Nerve 2-12 Intact, Motor Function Intact Abdomen: Present: Soft, Active Bowel Sounds, No Masses, Distended Skin: Present: Clear, warm, dry. Absent: Rash, Wound, suspicious lesion Extremities: Present: +1 Edema, nonpitting (Slightly worse on the left, no pretibial edema on the right) Result/EKG - Labs CBC & BMP: 03/21/17 06:19 03/21/17 06:19 Lab Results: I have reviewed the past 24 hour labs Labs: Laboratory Results - last 24 hr 03/20/17 03/20/17 03/20/17 07:22 17:34 19:40 WBC RBC Hgb Hct MCV MCH MCHC RDW Plt Count MPV Neut % (Auto) Lymph % (Auto) [place] % (Auto) Eos % (Auto) Baso % (Auto) Neut # (Auto) Lymph # (Auto) [place] # (Auto) Eos # (Auto) Baso # (Auto) Immature Gran % Nucleated RBC % Immature Gran # Nucleated RBCs # Sodium Potassium Chloride Carbon Dioxide Anion Gap BUN Creatinine GFR Calculation BUN/Creatinine Ratio Glucose POC Glucose 295 H 270 H 305 H Calculated Osmolality Calcium 03/21/17 03/21/17 03/21/17 06:19 06:19 07:29 WBC 17.5 H D RBC 3.40 L Hgb 8.9 L Hct 28.5 L MCV 83.8 L MCH 26 L MCHC 31.2 L RDW 14.5 Plt Count 210 MPV 10.8 Neut % (Auto) 75.4 H Lymph % (Auto) 21.0 L [place] % (Auto) 2.8 Eos % (Auto) 0.0 Baso % (Auto) 0.1 Neut # (Auto) 13.2 H Lymph # (Auto) 3.7 [place] # (Auto) 0.5 Eos # (Auto) 0.0 Baso # (Auto) 0.0 Immature Gran % 0.7 Nucleated RBC % 0.0 Immature Gran # 0.13 Nucleated RBCs # 0.00 Sodium 141 Potassium 3.9 Chloride 99 Carbon Dioxide 30 Anion Gap 15.9 H BUN 60 H Creatinine 2.90 H GFR Calculation 22 BUN/Creatinine Ratio 20.00 Glucose 138 H POC Glucose 151 H Calculated Osmolality 299.3 Calcium 8.9 03/21/17 11:20 WBC RBC Hgb Hct MCV MCH MCHC RDW Plt Count MPV Neut % (Auto) Lymph % (Auto) [place] % (Auto) Eos % (Auto) Baso % (Auto) Neut # (Auto) Lymph # (Auto) [place] # (Auto) Eos # (Auto) Baso # (Auto) Immature Gran % Nucleated RBC % Immature Gran # Nucleated RBCs # Sodium Potassium Chloride Carbon Dioxide Anion Gap BUN Creatinine GFR Calculation BUN/Creatinine Ratio Glucose POC Glucose 182 H Calculated Osmolality Calcium - Diagnostic Findings Procedure: Chest x-ray: image reviewed by me, report reviewed by me (03/20/2017: Left basilar pneumonia is improving) - EKG EKG results: interpreted by me, no acute changes EKG shows: atrial fibrillation Quality Measures - VTE Contraindication to Pharmacological VTE Prophylaxis: Already on Theraputic Agent , No Prophylaxis Needed Willem Dickson Wesley, MD, personally performed the services described in this documentation, ascribed by Esther Garg RN in my presence, and it is both accurate and complete 503 .
--- NOTE | 2017-03-21 15:12 | Nephrology Progress Note ---
Nephrology - PN: Subj Interval history: Patient states he is breathing better currently, he states he has been able to get up some of the congestion in his chest. Review of systems GI-he complains of abdominal bloating Physical exam general the patient is chronically ill-appearing, he has trace to 1+ pretibial edema, abdomen is soft with distention Assessment/plan 1. Acute renal failure on chronic renal failure-patient's creatinine is improved to 2.5 mg/dL from 2.7 mg/dL yesterday 2. Coronary artery disease 3. Congestive heart failure-patient seems to be compensated presently, we are holding his diuretics 4. Pneumonia-continue antibiotics 5. Hypertension this is controlled Exam (PN)-Nephrology - Vital Signs Vital signs: Period Temp Pulse Resp BP Sys/Lea Pulse Ox Last 24 Hr 97.4 F-98.6 F 53-77 16-20 111-130/48-68 94-99 - Lab 03/21/17 06:19 03/21/17 06:19 Most recent lab results ABG pH 7.421 (7.35-7.45) 03/18/17 22:04 ABG pCO2 48.3 MM HG (35-48) H 03/18/17 22:04 ABG pO2 70.7 MM HG (80-95) L 03/18/17 22:04 ABG HCO3 29.9 MMOL/L (20-26) H 03/18/17 22:04 ABG O2 Saturation 94.3 % (95-100) L 03/18/17 22:04 Calcium 8.9 MG/DL (8.5-10.1) 03/21/17 06:19 Magnesium 2.6 MG/DL (1.8-2.4) H 03/18/17 09:07 Assessment and Plan (1) Acute exacerbation of congestive heart failure Status: Acute Assessment and plan: This patient presents with shortness of breath and paroxysmal nocturnal dyspnea , he is also been having increased cough productive of yellow sputum and reports a low-grade temperature for him. I agree with the Lasix as ordered but would also consider covering with some antibiotic therapy. This was discussed with Dr. Ojeda. Current Visit: Yes (2) Bradycardia Status: Acute Assessment and plan: This seems to have resolved his heart rate is in the 70s presently Current Visit: Yes (3) Hypoxemia Status: Acute Current Visit: Yes (4) Atrial fibrillation Status: Chronic Current Visit: Yes Qualifiers: Atrial fibrillation type: paroxysmal Qualified Code(s): I48.0 - Paroxysmal atrial fibrillation (5) Renal insufficiency Status: Chronic Assessment and plan: Patient's creatinine is slightly increased from a creatinine of 2 mg/dL a few months ago although in the past the patient has had a creatinine this time. His creatinine today is improved to 2.2 from 2.4 mg/dL at presentation. We will continue to monitor this. Current Visit: Yes (6) Coronary artery arteriosclerosis Status: Chronic Current Visit: No (7) Diabetes mellitus type 2 in nonobese Status: Chronic Current Visit: No (8) Hypertension Status: Chronic Assessment and plan: Patient's blood pressure is at the low end of normal, will monitor this for now he may need a decrease in his amlodipine as we diurese him. Current Visit: No Qualifiers: Hypertension type: essential hypertension Qualified Code(s): I10 - Essential (primary) hypertension
[2017-03-21] MEDS: PRAMIPEXOLE 0.25 MG TABLET PO SCH (20:30)
[2017-03-21] MEDS: amLODIPine 10 MG TABLET PO SCH (20:31)
[2017-03-21] MEDS: ATORVASTATIN 40 MG TABLET PO SCH (20:31)
[2017-03-21] MEDS: INSULIN GLARGINE 100 UNIT/ML SUBCUT SCH (20:32)
[2017-03-22] MEDS: ALBUTEROL/IPRATROPIUM 3 ML NEB RESP TX SCH ×2 (00:07→07:30)
[2017-03-22] MEDS: CEFEPIME 2,000 MG in SODIUM CHLORIDE 0.9% 100 ML IV SCH (03:39)
[2017-03-22 07:13] LABS: Basophils % 0.1 % (0.0-0.8); Eosinophils % 0.2 % (0.00-10.9); Hematocrit 27.6 VOL% (42.0-52.0); Hemoglobin 8.5 GM/DL (14.0-18.0); Immature Granulocytes % 0.3 %; Immature Granulocytes Absolute 0.03 #; Lymphocytes # 3.1 10*3/uL (1.4-4.0); Lymphocytes % 27.6 % (21.2-54.2); Mean Corpuscular HGB Conc 30.8 GM/DL (32-36); Mean Corpuscular Hemoglobin 26 PG (27-34); Mean Corpuscular Volume 84.9 FL (87-102); Mean Platelet Volume 11.1 FL (9.6-12.0); Monocytes # 0.5 10*3/uL (0.11-0.8); Neutrophils # 7.6 10*3/uL (1.4-7.4); Neutrophils % 67.8 % (38.7-73.9); Platelet Count 187 T/CUMM (130-400); Red Blood Count 3.25 MC/CUMM (3.8-5.5); Red Cell Distribution Width 14.6 % (9.3-17.3); White Blood Count 11.2 T/CUMM (4-12)
[2017-03-22 07:38] LABS: Calcium 8.4 MG/DL (8.5-10.1); Magnesium 2.8 MG/DL (1.8-2.4); Osmolality,Calculated 299.3 MOS/KG (273-304); Potassium 3.8 MMOL/L (3.5-5.1)
[2017-03-22] MEDS: ASPIRIN CHEW 81 MG TABLET PO SCH (08:30)
[2017-03-22] MEDS: CLOPIDOGREL 75 MG TABLET PO SCH (08:30)
[2017-03-22] MEDS: POLYETHYLENE GLYCOL POWDER 17 GM PACK PO SCH (08:30)
[2017-03-22] MEDS: PANTOPRAZOLE 40 MG TABLET PO SCH (08:30)
[2017-03-22] MEDS: ISOSORBIDE MONONITRATE 60 MG TABLET PO SCH (08:30)
[2017-03-22] MEDS: INSULIN REGULAR 100 UNIT/ML SUBCUT SCH ×2 (08:31→11:15)
--- NOTE | 2017-03-22 10:18 | Discharge Summary ---
<Michael Flores - Last Filed: 03/22/17 09:33> Hospital Course - Hospital Course Hospital Course: Mr. Mcdonald is an 86-year-old male who presented to the emergency room on 2016 with complaints of shortness of breath and CHF exacerbation. The patient was admitted to hospital medicine service for further evaluation and treatment. Patient was started on 40 mg IV Lasix twice daily with I&O monitoring, supplemental oxygen with a goal to keep saturation above 92%, breathing treatments as needed, and nephrology and cardiology consultations. Given the patient's presentation with shortness of breath and paroxysmal nocturnal dyspnea , cough productive of yellow sputum and low-grade temperature, the patient was given cefepime and azithromycin in addition to IV Lasix. Patient's creatinine increased to 2.7 likely due to diuresis. Lasix was held. Repeat chest x-ray on 03/20/2017 revealed interval improvement in the left basilar pneumonia. Patient continued to improve with IV antibiotics and oxygen. CHF exacerbation is resolved. Renal failure is stable with a creatinine steady at approximately 2.7. Atrial fibrillation is rate controlled. Continue Lantus for diabetic control. At this time patient is stable and ready for discharge. Family has requested that the [facility]. Additional follow-up instructions and appropriate discharge orders to follow per Dr. Ojeda. No ALTAGRACIA or arb due to renal failure. Dr. Tinsley was consulted and has been monitoring his renal function. Patient will be discharged to rehab today with follow-up with Dr. Tinsley and Dr. Bangura. - Time spent with patient Time with patient DS: Greater than 30 minutes Discharge Plan - Discharge Data Disposition: Disch/Xfer-Ip Rehab Fac - Discharge Medications New Albuterol/Ipratropium Neb [Duoneb] 3 ml RESP TX RT Q6H Amoxicillin/Clav Tab [Augmentin Tab] 875 mg PO BID #20 tablet Lactulose Liquid [Chronulac] 20 gm PO Q4H PRN PRN Reason: Constipation Acetaminophen Tab [Tylenol Tab] 325 mg PO Q4H PRN tablet PRN Reason: fever, headache/body aches Insulin Regular [HumuLIN R] See Protocol SUBCUT ACHS unit Continue Atorvastatin Calcium 40 mg PO QPM Isosorbide Mononitrate [Imdur] 60 mg PO QAM Amlodipine Besylate 1 tablet PO QPM Pantoprazole Tab [Protonix Tab] 40 mg PO BEDTIME Aspirin Chew Tab 1 tablet PO QAM Pramipexole Di-HCl [Pramipexole Dihydrochloride] 0.5 mg PO BEDTIME Albuterol Inhaler [Proventil Inhaler] 2 puff INH Q6H PRN #1 inhaler PRN Reason: Shortness Of Breath/Wheezing Clopidogrel Bisulfate [Clopidogrel] 75 mg PO QAM Polyethylene Glycol Powder [Miralax] 17 gm PO QAM Changed Insulin Glargine [Lantus] 25 unit SUBCUT BEDTIME #0 Discontinued Hydralazine HCl 25 mg PO BID Docusate Sodium Cap [Colace Cap] 100 mg PO BID Amiodarone Tab [Cordarone Tab] 200 mg PO BEDTIME glipiZIDE [Glucotrol] 10 mg PO BIDAC Furosemide Tab [Lasix Tab] 80 mg PO BID DIURETIC Nitroglycerin [Nitroglycerin SL Tab] 0.4 mg SL Q5M PRN PRN Reason: Chest Pain Doxazosin Mesylate 1 mg PO DAILY - Follow Up or Referral Follow Up: Dutch Tinsley MD [Physician] - (on discharge from rehab ) Ellis Bangura MD [Physician] - (on discharge from rehab ) dr mason [Other] (on discharge from rehab ) - Forms/Instructions Instructions: Heart Failure (DC), Atrial Fibrillation (DC), Chronic Kidney Disease (DC) Exam - Constitutional Vitals: Period Temp Pulse Resp BP Sys/Lea Pulse Ox Last 24 Hr 97.4 F-98.0 F 52-75 16-20 105-130/53-61 94-99 Discharge Results Procedures and tests throughout hospitalization: Pending Orders 03/19/17 17:20 Occult Blood, Stool Routine 03/20/17 16:20 Occult Blood, Stool Routine 03/23/17 04:00 CBC [Comp Blood Count Auto Diff] IN AM 03/24/17 04:00 CBC [Comp Blood Count Auto Diff] IN AM Labs on day of discharge: Labs from last 24 hours 03/22/17 03/22/17 03/21/17 05:39 05:39 19:03 WBC 11.2 D RBC 3.25 L Hgb 8.5 L Hct 27.6 L MCV 84.9 L MCH 26 L MCHC 30.8 L RDW 14.6 Plt Count 187 MPV 11.1 Neut % (Auto) 67.8 Lymph % (Auto) 27.6 [place] % (Auto) 4.0 Eos % (Auto) 0.2 Baso % (Auto) 0.1 Neut # (Auto) 7.6 H Lymph # (Auto) 3.1 [place] # (Auto) 0.5 Eos # (Auto) 0.0 Baso # (Auto) 0.0 Immature Gran % 0.3 Nucleated RBC % 0.0 Immature Gran # 0.03 Nucleated RBCs # 0.00 Sodium 141 Potassium 3.8 Chloride 100 Carbon Dioxide 31 Anion Gap 13.8 BUN 66 H Creatinine 2.70 H GFR Calculation 24 BUN/Creatinine Ratio 24.00 H Glucose 96 POC Glucose 174 H Calculated Osmolality 299.3 Calcium 8.4 L Magnesium 2.8 H 03/21/17 03/21/17 15:38 11:20 WBC RBC Hgb Hct MCV MCH MCHC RDW Plt Count MPV Neut % (Auto) Lymph % (Auto) [place] % (Auto) Eos % (Auto) Baso % (Auto) Neut # (Auto) Lymph # (Auto) [place] # (Auto) Eos # (Auto) Baso # (Auto) Immature Gran % Nucleated RBC % Immature Gran # Nucleated RBCs # Sodium Potassium Chloride Carbon Dioxide Anion Gap BUN Creatinine GFR Calculation BUN/Creatinine Ratio Glucose POC Glucose 120 H 182 H Calculated Osmolality Calcium Magnesium DS: Provider Date of admission: 03/19/17 10:00 Primary care physician: Xiomara Ceballos DO Attending physician on admission: WERO Goncalves Consults: 03/18/17 11:16 Consult to Physician [CONS] Routine Comment: recent stents, CHF exacerbation Consulting Provider: Xiomara Ceballos Person Notified: Kizzy Date Notified: 03/18/17 Time Notified: 12:36 Consult Notification Comment: talked to Dr Ceballos at 1237. 03/18/17 11:18 Consult to Case Mgmt/Social Srvs [CONS] Routine Reason for Case Mgmt/Social Srvs: Hospice Referral Discharge Planning Consult Comment: currently with [facility], would like referral to [facility], at home 03/18/17 11:22 Consult to Occupational Therapy [CONS] Routine Reason for Occupational Therapy: Weakness Consult to Physical Therapy [CONS] Routine Reason for Physical Therapy: Weakness 03/18/17 11:27 Consult to Physician [CONS] Routine Comment: elevated Creat. Consulting Provider: Dutch Tinsley Person Notified: LETICIA Date Notified: 03/19/17 Time Notified: 09:20 Consult Notification Comment: 03/19/17 14:35 Consult to Pharmacy [CONS] Routine Reason for Pharmacy Consult: Dose/Manage Antibiotics Comment: cefepime 03/21/17 09:55 Consult to Case Mgmt/Social Srvs [CONS] Routine Reason for Case Mgmt/Social Srvs: Rehab Consult Comment: [facility] [place] Discharging clinician: Michael MELCHOR Expected date of discharge: 03/22/17 <Beth Ojeda - Last Filed: 03/22/17 11:14> Hospital Course - Time spent with patient Time with patient DS: Greater than 30 minutes (55 min) Diagnosis - Discharge Diagnosis (1) Pneumonia Status: Acute (2) Diabetes mellitus type 2 in nonobese Status: Chronic (3) History of aortic valve replacement with bioprosthetic valve Status: Chronic (4) Acute exacerbation of congestive heart failure Status: Acute (5) Atrial fibrillation Status: Chronic (6) History of hypertension Status: Chronic (7) Right upper quadrant abdominal pain Status: Acute (8) Hypokalemia Status: Acute (9) Chronic renal failure, stage 3 (moderate) Status: Acute Discharge Plan - Discharge Data Condition at Discharge: Stable Discharge Diet: diabetic diet Activity: resume usual activities as tolerated, wear oxygen at all times Hygiene: no restrictions Weight Bearing at Discharge: full weight bearing Exam - Constitutional General appearance: no acute distress, over weight - Respiratory Respiratory exam: Present: clear to auscultation bilaterally. Absent: rhonchi, wheezes - Cardiovascular Cardiovascular exam: Present: regular rate and rhythm. Absent: systolic murmur - GI/Abdominal GI/Abdominal exam: Present: normal bowel sounds, soft. Absent: tenderness - Extremities Exam Extremities exam: Present: edema
--- NOTE | 2017-03-22 11:49 | Nephrology Progress Note ---
Nephrology - PN: Subj Interval history: Patient complains of abdominal bloating. Review of systems pulmonary he states he is breathing okay with supplemental oxygen, his O2 sat on room air fell to around 80% Physical exam general the patient has trace edema Assessment/plan 1. Chronic kidney disease stage III-patient's creatinine is back up to 2.7 mg/dL from 2.5 mg/dL 2. Coronary artery disease 3. Congestive heart failure-the patient is to be started back on Lasix due to his continued hypoxia 4. Pneumonia-we will continue on antibiotics Exam (PN)-Nephrology - Vital Signs Vital signs: Period Temp Pulse Resp BP Sys/Lea Pulse Ox Last 24 Hr 97.4 F-98.0 F 52-75 16-20 105-130/53-61 94-99 - Lab 03/22/17 05:39 03/22/17 05:39 Most recent lab results ABG pH 7.421 (7.35-7.45) 03/18/17 22:04 ABG pCO2 48.3 MM HG (35-48) H 03/18/17 22:04 ABG pO2 70.7 MM HG (80-95) L 03/18/17 22:04 ABG HCO3 29.9 MMOL/L (20-26) H 03/18/17 22:04 ABG O2 Saturation 94.3 % (95-100) L 03/18/17 22:04 Calcium 8.4 MG/DL (8.5-10.1) L 03/22/17 05:39 Magnesium 2.8 MG/DL (1.8-2.4) H 03/22/17 05:39 Assessment and Plan (1) Acute exacerbation of congestive heart failure Status: Acute Assessment and plan: This patient presents with shortness of breath and paroxysmal nocturnal dyspnea , he is also been having increased cough productive of yellow sputum and reports a low-grade temperature for him. I agree with the Lasix as ordered but would also consider covering with some antibiotic therapy. This was discussed with Dr. Ojeda. Current Visit: Yes (2) Bradycardia Status: Acute Assessment and plan: This seems to have resolved his heart rate is in the 70s presently Current Visit: Yes (3) Hypoxemia Status: Acute Current Visit: Yes (4) Atrial fibrillation Status: Chronic Current Visit: Yes Qualifiers: Atrial fibrillation type: paroxysmal Qualified Code(s): I48.0 - Paroxysmal atrial fibrillation (5) Renal insufficiency Status: Chronic Assessment and plan: Patient's creatinine is slightly increased from a creatinine of 2 mg/dL a few months ago although in the past the patient has had a creatinine this time. His creatinine today is improved to 2.2 from 2.4 mg/dL at presentation. We will continue to monitor this. Current Visit: Yes (6) Coronary artery arteriosclerosis Status: Chronic Current Visit: No (7) Diabetes mellitus type 2 in nonobese Status: Chronic Current Visit: No (8) Hypertension Status: Chronic Assessment and plan: Patient's blood pressure is at the low end of normal, will monitor this for now he may need a decrease in his amlodipine as we diurese him. Current Visit: No Qualifiers: Hypertension type: essential hypertension Qualified Code(s): I10 - Essential (primary) hypertension Specialty Discharge - Follow Up or Referrals Follow up with: Dutch Tinsley MD [Physician] - 04/12/17 10:45 am (on discharge from rehab ) Jagjit Ward DO [Physician] - 04/19/17 3:30 pm Ellis Bangura MD [Physician] - 04/12/17 12:40 pm (on discharge from rehab )
[2017-03-22 11:57] VITALS: BP 130/59
[2017-03-23] MEDS ORDERED: CEFEPIME 2,000 MG in SODIUM CHLORIDE 0.9% 100 ML IV SCH (04:00)
== END 2017-03-22 13:13 | disposition swing bed (61) | DRG 291 ==
LOC: N.EDINP 08:51 → N.ED 08:51 → SUATTDRO 10:45 → N.5E 11:11
PROVIDERS: ADMIT Nurse Practitioner Adult Health; ATTEND Internal Medicine

== ENCOUNTER 2017-10-22 12:56 | Inpatient (IN) ==
[2017-10-22 16:13] LABS: Basophils # 0.1 10*3/uL (0.0-0.2); Basophils % 0.5 % (0.0-0.8); Eosinophils # 0.6 10*3/uL (0.0-0.87); Eosinophils % 4.7 % (0.00-10.9); Hematocrit 40.6 VOL% (42.0-52.0); Hemoglobin 13.5 GM/DL (14.0-18.0); Immature Granulocytes % 0.3 %; Immature Granulocytes Absolute 0.04 #; Lymphocytes # 6.5 10*3/uL (1.4-4.0); Lymphocytes % 48.6 % (21.2-54.2); Mean Corpuscular HGB Conc 33.3 GM/DL (32-36); Mean Corpuscular Hemoglobin 29 PG (27-34); Mean Corpuscular Volume 88.1 FL (87-102); Mean Platelet Volume 11.3 FL (9.6-12.0); Monocytes # 0.7 10*3/uL (0.11-0.8); Monocytes % 5.1 % (1.7-12.7); Neutrophils # 5.5 10*3/uL (1.4-7.4); Neutrophils % 40.8 % (38.7-73.9); Platelet Count 197 T/CUMM (130-400); Red Blood Count 4.61 MC/CUMM (3.8-5.5); Red Cell Distribution Width 14.2 % (9.3-17.3); White Blood Count 13.4 T/CUMM (4-12)
[2017-10-22 16:22] LABS: PT Patient Result 10.5 SECS; Partial Thromboplastin Time 24.1 SECS (0-40)
[2017-10-22 16:34] LABS: Albumin 3.6 G/DL (3.4-5.0); Bilirubin,Total 0.5 MG/DL (0.2-1.0); Calcium 9.1 MG/DL (8.5-10.1); Magnesium 2.2 MG/DL (1.8-2.4); Osmolality,Calculated 302.7 MOS/KG (273-304); Potassium 3.9 MMOL/L (3.5-5.1); Total Protein 7.9 G/DL (6.4-8.3)
[2017-10-22] MEDS ORDERED: ASPIRIN 325 MG TABLET PO STA (16:45)
[2017-10-22] MEDS ORDERED: MORPHINE 2 MG/1 ML SYRINGE IV STA (16:45)
[2017-10-22] MEDS ORDERED: ONDANSETRON 4 MG/2 ML VIAL IV STA (16:45)
[2017-10-22] MEDS ORDERED: NITROGLYCERIN 2% OINT 1 INCH/GM PACK TOP STA (16:45)
[2017-10-22] MEDS ORDERED: ALUM/MAG/SIMETH/LIDO VISC 1:1 30 ML BOTTLE PO STA (16:45)
[2017-10-22] MEDS ORDERED: SODIUM CHLORIDE 0.9% 500 ML IV STA (16:48)
[2017-10-22] MEDS ORDERED: ASPIRIN 325 MG TABLET ONE (16:54)
[2017-10-22] MEDS ORDERED: NITROGLYCERIN 2% OINT 1 INCH/GM PACK TOP ONE (16:54)
[2017-10-22] MEDS ORDERED: ALUM/MAG/SIMETH/LIDO VISC 1:1 30 ML BOTTLE PO ONE (17:08)
[2017-10-22] MEDS ORDERED: ACETAMINOPHEN 325 MG TABLET PO PRN ×2 (17:21→17:25)
[2017-10-22] MEDS ORDERED: ZALEPLON 5 MG CAPSULE PO PRN (17:21)
[2017-10-22] MEDS ORDERED: DOCUSATE SODIUM 100 MG CAPSULE PO PRN (17:25)
[2017-10-22] MEDS ORDERED: DEXTROSE 50% 25 GM/50 ML VIAL IV PRN (17:26)
[2017-10-22] MEDS ORDERED: GLUCAGON 1 MG VIAL IM PRN (17:26)
[2017-10-22 17:51] LABS: Risk Ratio 4.62; Thyroid Stimulating Hormone 4.7 uIU/ml (0.358-3.74); VLDL CHOLESTEROL 41.2 MG/DL
[2017-10-22] MEDS ORDERED: ATORVASTATIN 40 MG TABLET PO SCH (19:00)
[2017-10-22] MEDS ORDERED: ENOXAPARIN 30 MG/0.3 ML SYRINGE ONE (20:40)
[2017-10-22] MEDS ORDERED: FUROSEMIDE 80 MG TABLET ONE (20:40)
[2017-10-22] MEDS ORDERED: ATORVASTATIN 40 MG TABLET ONE (20:40)
[2017-10-22] MEDS ORDERED: PANTOPRAZOLE 40 MG TABLET PO ONE (20:40)
[2017-10-22] MEDS ORDERED: DOCUSATE SODIUM 100 MG CAPSULE ONE (20:40)
[2017-10-22] MEDS ORDERED: GABAPENTIN 100 MG CAPSULE ONE (20:40)
[2017-10-22] MEDS: ENOXAPARIN 30 MG/0.3 ML SYRINGE SUBCUT SCH (20:45)
[2017-10-22] MEDS: PANTOPRAZOLE 40 MG TABLET PO SCH (20:45)
[2017-10-22] MEDS: FUROSEMIDE 80 MG TABLET PO SCH (20:45)
[2017-10-22] MEDS: DOCUSATE SODIUM 100 MG CAPSULE PO SCH (20:45)
[2017-10-22] MEDS: GABAPENTIN 100 MG CAPSULE PO SCH (20:45)
[2017-10-22] MEDS: ALBUTEROL/IPRATROPIUM 3 ML NEB RESP TX SCH (20:52)
[2017-10-22 21:51] LABS: Apearance,Urine CLEAR (Clear); Bilirubin,Urine Negative (Negative); Blood, Urine Negative (Negative); Glucose,Urine (UA) Negative (Negative); Ketones,Urine Negative (Negative); Nitrite,Urine Negative (Negative); Protein,Urine Negative; RBC,Urine 1 /HPF (0-4); Urine Color Yellow (Yellow); WBC,Urine 2 /HPF (0-6)
[2017-10-22 21:58] LABS: Barbiturates Screen,Urine Negative (Negative); Benzodiazepines Screen,Urine Negative (Negative); Cannabinoid Screen,Urine Negative (Negative); Opiate Screen,Urine Negative (Negative); Phencyclidine Screen,Urine Negative (Negative)
[2017-10-22] MEDS: RANOLAZINE 500 MG TABLET PO SCH (22:13)
[2017-10-22] MEDS ORDERED: ALBUTEROL 2.5 MG/3 ML NEB RESP TX PRN (23:16)
[2017-10-22] MEDS: INSULIN REGULAR 100 UNIT/ML SUBCUT SCH (23:41)
[2017-10-23] MEDS: ALBUTEROL/IPRATROPIUM 3 ML NEB RESP TX SCH ×4 (00:29→19:38)
[2017-10-23 04:19] LABS: Basophils # 0.1 10*3/uL (0.0-0.2); Basophils % 0.5 % (0.0-0.8); Eosinophils # 0.7 10*3/uL (0.0-0.87); Eosinophils % 6.4 % (0.00-10.9); Hematocrit 37.4 VOL% (42.0-52.0); Immature Granulocytes % 0.4 %; Immature Granulocytes Absolute 0.04 #; Lymphocytes # 3.9 10*3/uL (1.4-4.0); Mean Corpuscular HGB Conc 32.1 GM/DL (32-36); Mean Corpuscular Hemoglobin 29 PG (27-34); Mean Corpuscular Volume 90.1 FL (87-102); Mean Platelet Volume 11.5 FL (9.6-12.0); Monocytes # 0.6 10*3/uL (0.11-0.8); Monocytes % 5.6 % (1.7-12.7); Neutrophils # 5.3 10*3/uL (1.4-7.4); Neutrophils % 50.1 % (38.7-73.9); Platelet Count 169 T/CUMM (130-400); Red Blood Count 4.15 MC/CUMM (3.8-5.5); Red Cell Distribution Width 14.4 % (9.3-17.3); White Blood Count 10.5 T/CUMM (4-12)
[2017-10-23 04:30] LABS: Calcium 8.8 MG/DL (8.5-10.1); Osmolality,Calculated 312.1 MOS/KG (273-304); Potassium 3.2 MMOL/L (3.5-5.1)
[2017-10-23] MEDS: INSULIN GLARGINE 100 UNIT/ML SUBCUT SCH ×2 (06:08→20:45)
[2017-10-23] MEDS: INSULIN REGULAR 100 UNIT/ML SUBCUT SCH ×4 (07:53→20:44)
[2017-10-23] MEDS: LEVOTHYROXINE 100 MCG TABLET PO SCH (08:28)
[2017-10-23] MEDS ORDERED: ISOSORBIDE MONONITRATE 60 MG TABLET PO SCH (09:00)
[2017-10-23 09:11] LABS: Free T4 (Free Thyroxine) 1.29 NG/DL (0.76-1.46); Thyroid Stimulating Hormone 7.88 uIU/ml (0.358-3.74)
[2017-10-23] MEDS ORDERED: POTASSIUM CHLORIDE 20 MEQ TABLET PO ONE ×2 (09:35→11:10)
[2017-10-23] MEDS ORDERED: DOCUSATE SODIUM 100 MG CAPSULE ONE (09:52)
[2017-10-23] MEDS ORDERED: PANTOPRAZOLE 40 MG TABLET PO ONE (09:52)
[2017-10-23] MEDS ORDERED: GABAPENTIN 100 MG CAPSULE ONE (09:52)
[2017-10-23] MEDS ORDERED: FUROSEMIDE 80 MG TABLET ONE (09:52)
[2017-10-23] MEDS ORDERED: CLOPIDOGREL 75 MG TABLET ONE (09:52)
[2017-10-23] MEDS: PANTOPRAZOLE 40 MG TABLET PO SCH ×2 (10:00→20:42)
[2017-10-23] MEDS: CLOPIDOGREL 75 MG TABLET PO SCH (10:00)
[2017-10-23] MEDS: FUROSEMIDE 80 MG TABLET PO SCH ×2 (10:00→20:42)
[2017-10-23] MEDS: DOCUSATE SODIUM 100 MG CAPSULE PO SCH ×2 (10:00→20:42)
[2017-10-23] MEDS: GABAPENTIN 100 MG CAPSULE PO SCH ×3 (10:00→20:43)
[2017-10-23] MEDS ORDERED: NITROGLYCERIN SL 0.4 MG TABLET SL ONE ×2 (10:27→10:34)
[2017-10-23] MEDS ORDERED: ATORVASTATIN 40 MG TABLET PO STA (10:29)
[2017-10-23] MEDS: NITROGLYCERIN SL 0.4 MG TABLET SL PRN ×2 (10:29→10:35)
[2017-10-23] MEDS ORDERED: ASPIRIN CHEW 81 MG TABLET PO SCH (10:30)
[2017-10-23] MEDS ORDERED: ASPIRIN 325 MG TABLET ONE (10:32)
[2017-10-23] MEDS ORDERED: ASPIRIN EC 325 MG TABLET PO STA (10:34)
[2017-10-23] MEDS ORDERED: ALUM/MAG/SIMETH/LIDO VISC 1:1 30 ML BOTTLE PO STA (10:42)
[2017-10-23] MEDS ORDERED: ALUM/MAG/SIMETH/LIDO VISC 1:1 30 ML BOTTLE PO ONE (10:44)
[2017-10-23] MEDS ORDERED: NITROGLYCERIN DRIP 50 MG/250 ML BOTTLE IV ONE (10:53)
[2017-10-23] MEDS ORDERED: NITROGLYCERIN DRIP 50 MG/250 ML BOTTLE IV SCH (11:00)
[2017-10-23] MEDS: FERROUS SULFATE 325 MG TABLET PO SCH (11:07)
[2017-10-23] MEDS: RANOLAZINE 500 MG TABLET PO SCH ×2 (11:07→20:43)
[2017-10-23] MEDS: glipiZIDE 10 MG TABLET PO SCH ×2 (11:07→16:40)
[2017-10-23] MEDS ORDERED: ATORVASTATIN 40 MG TABLET ONE (11:10)
[2017-10-23] MEDS ORDERED: ONDANSETRON 4 MG/2 ML VIAL IV PRN (17:49)
[2017-10-23] MEDS: ENOXAPARIN 30 MG/0.3 ML SYRINGE SUBCUT SCH (20:43)
[2017-10-24] MEDS: ALBUTEROL/IPRATROPIUM 3 ML NEB RESP TX SCH ×4 (00:43→19:53)
[2017-10-24] MEDS: LEVOTHYROXINE 100 MCG TABLET PO SCH (06:12)
[2017-10-24 06:21] LABS: Basophils % 0.3 % (0.0-0.8); Eosinophils # 0.8 10*3/uL (0.0-0.87); Eosinophils % 6.9 % (0.00-10.9); Hematocrit 40.4 VOL% (42.0-52.0); Immature Granulocytes % 0.2 %; Immature Granulocytes Absolute 0.03 #; Lymphocytes # 4.6 10*3/uL (1.4-4.0); Lymphocytes % 37.3 % (21.2-54.2); Mean Corpuscular HGB Conc 32.2 GM/DL (32-36); Mean Corpuscular Hemoglobin 29 PG (27-34); Mean Corpuscular Volume 89.8 FL (87-102); Mean Platelet Volume 11.6 FL (9.6-12.0); Monocytes # 0.7 10*3/uL (0.11-0.8); Monocytes % 5.3 % (1.7-12.7); Neutrophils # 6.1 10*3/uL (1.4-7.4); Platelet Count 181 T/CUMM (130-400); Red Cell Distribution Width 14.5 % (9.3-17.3); White Blood Count 12.2 T/CUMM (4-12)
[2017-10-24 06:51] LABS: Calcium 9.2 MG/DL (8.5-10.1); Magnesium 2.4 MG/DL (1.8-2.4); Potassium 3.7 MMOL/L (3.5-5.1)
[2017-10-24] MEDS: INSULIN REGULAR 100 UNIT/ML SUBCUT SCH ×4 (07:36→20:30)
[2017-10-24] MEDS: glipiZIDE 10 MG TABLET PO SCH ×2 (08:53→17:11)
[2017-10-24] MEDS: FUROSEMIDE 80 MG TABLET PO SCH ×2 (08:53→20:31)
[2017-10-24] MEDS: DOCUSATE SODIUM 100 MG CAPSULE PO SCH ×2 (08:53→20:29)
[2017-10-24] MEDS: ASPIRIN EC 325 MG TABLET PO SCH (08:53)
[2017-10-24] MEDS: CLOPIDOGREL 75 MG TABLET PO SCH (08:54)
[2017-10-24] MEDS: PANTOPRAZOLE 40 MG TABLET PO SCH ×2 (08:54→20:31)
[2017-10-24] MEDS: FERROUS SULFATE 325 MG TABLET PO SCH (08:54)
[2017-10-24] MEDS: RANOLAZINE 500 MG TABLET PO SCH ×2 (09:02→20:31)
[2017-10-24] MEDS: GABAPENTIN 100 MG CAPSULE PO SCH ×3 (09:07→20:31)
[2017-10-24] MEDS: ENOXAPARIN 30 MG/0.3 ML SYRINGE SUBCUT SCH (20:31)
[2017-10-24] MEDS: INSULIN GLARGINE 100 UNIT/ML SUBCUT SCH (20:31)
[2017-10-25] MEDS: ALBUTEROL/IPRATROPIUM 3 ML NEB RESP TX SCH ×4 (00:03→20:46)
[2017-10-25 06:25] LABS: Basophils % 0.3 % (0.0-0.8); Eosinophils # 0.2 10*3/uL (0.0-0.87); Eosinophils % 1.9 % (0.00-10.9); Hematocrit 37.7 VOL% (42.0-52.0); Hemoglobin 11.8 GM/DL (14.0-18.0); Immature Granulocytes % 0.3 %; Immature Granulocytes Absolute 0.03 #; Lymphocytes # 3.6 10*3/uL (1.4-4.0); Lymphocytes % 33.1 % (21.2-54.2); Mean Corpuscular HGB Conc 31.3 GM/DL (32-36); Mean Corpuscular Hemoglobin 29 PG (27-34); Mean Platelet Volume 11.7 FL (9.6-12.0); Monocytes # 0.7 10*3/uL (0.11-0.8); Monocytes % 6.3 % (1.7-12.7); Neutrophils # 6.3 10*3/uL (1.4-7.4); Neutrophils % 58.1 % (38.7-73.9); Platelet Count 161 T/CUMM (130-400); Red Cell Distribution Width 14.4 % (9.3-17.3); White Blood Count 10.8 T/CUMM (4-12)
[2017-10-25 06:41] LABS: Calcium 8.5 MG/DL (8.5-10.1); Magnesium 2.2 MG/DL (1.8-2.4); Potassium 3.8 MMOL/L (3.5-5.1)
[2017-10-25] MEDS: LEVOTHYROXINE 100 MCG TABLET PO SCH (07:03)
[2017-10-25] MEDS: INSULIN REGULAR 100 UNIT/ML SUBCUT SCH ×4 (08:38→22:41)
[2017-10-25] MEDS: CLOPIDOGREL 75 MG TABLET PO SCH (08:43)
[2017-10-25] MEDS: glipiZIDE 10 MG TABLET PO SCH ×2 (08:43→16:11)
[2017-10-25] MEDS: FERROUS SULFATE 325 MG TABLET PO SCH (08:43)
[2017-10-25] MEDS: RANOLAZINE 500 MG TABLET PO SCH ×2 (08:43→22:43)
[2017-10-25] MEDS: GABAPENTIN 100 MG CAPSULE PO SCH ×3 (08:44→22:42)
[2017-10-25] MEDS: ASPIRIN EC 325 MG TABLET PO SCH (08:45)
[2017-10-25] MEDS: FUROSEMIDE 80 MG TABLET PO SCH ×2 (08:46→22:41)
[2017-10-25] MEDS: PANTOPRAZOLE 40 MG TABLET PO SCH ×2 (08:46→22:43)
[2017-10-25] MEDS: DOCUSATE SODIUM 100 MG CAPSULE PO SCH ×2 (08:46→22:40)
[2017-10-25] MEDS: ASPIRIN EC 81 MG TABLET PO SCH (11:50)
[2017-10-25] MEDS ORDERED: SIMETHICONE CHEW 125 MG TABLET PO ONE (14:00)
[2017-10-25] MEDS: SIMETHICONE CHEW 125 MG TABLET PO SCH ×2 (17:53→22:42)
[2017-10-25] MEDS: INSULIN GLARGINE 100 UNIT/ML SUBCUT SCH (22:41)
[2017-10-25] MEDS: ENOXAPARIN 30 MG/0.3 ML SYRINGE SUBCUT SCH (22:42)
[2017-10-26] MEDS: ALBUTEROL/IPRATROPIUM 3 ML NEB RESP TX SCH ×2 (01:28→07:00)
[2017-10-26 04:53] LABS: Basophils % 0.3 % (0.0-0.8); Eosinophils # 0.3 10*3/uL (0.0-0.87); Eosinophils % 2.6 % (0.00-10.9); Hematocrit 33.9 VOL% (42.0-52.0); Hemoglobin 11.2 GM/DL (14.0-18.0); Immature Granulocytes % 0.4 %; Immature Granulocytes Absolute 0.04 #; Lymphocytes # 3.8 10*3/uL (1.4-4.0); Lymphocytes % 39.6 % (21.2-54.2); Mean Corpuscular Hemoglobin 29 PG (27-34); Mean Corpuscular Volume 88.5 FL (87-102); Mean Platelet Volume 11.7 FL (9.6-12.0); Monocytes # 0.6 10*3/uL (0.11-0.8); Monocytes % 6.4 % (1.7-12.7); Neutrophils # 4.9 10*3/uL (1.4-7.4); Neutrophils % 50.7 % (38.7-73.9); Platelet Count 160 T/CUMM (130-400); Red Blood Count 3.83 MC/CUMM (3.8-5.5); Red Cell Distribution Width 14.3 % (9.3-17.3); White Blood Count 9.7 T/CUMM (4-12)
[2017-10-26 05:17] LABS: Calcium 8.5 MG/DL (8.5-10.1); Magnesium 2.3 MG/DL (1.8-2.4); Osmolality,Calculated 296.5 MOS/KG (273-304); Potassium 3.4 MMOL/L (3.5-5.1)
[2017-10-26] MEDS: LEVOTHYROXINE 100 MCG TABLET PO SCH (06:08)
[2017-10-26] MEDS: INSULIN REGULAR 100 UNIT/ML SUBCUT SCH ×2 (07:32→12:42)
[2017-10-26] MEDS: glipiZIDE 10 MG TABLET PO SCH (07:32)
[2017-10-26] MEDS: FUROSEMIDE 80 MG TABLET PO SCH (08:20)
[2017-10-26] MEDS: RANOLAZINE 500 MG TABLET PO SCH (09:28)
[2017-10-26] MEDS: DOCUSATE SODIUM 100 MG CAPSULE PO SCH (09:28)
[2017-10-26] MEDS: SIMETHICONE CHEW 125 MG TABLET PO SCH ×2 (09:29→12:42)
[2017-10-26] MEDS: CLOPIDOGREL 75 MG TABLET PO SCH (09:29)
[2017-10-26] MEDS: PANTOPRAZOLE 40 MG TABLET PO SCH (09:29)
[2017-10-26] MEDS: FERROUS SULFATE 325 MG TABLET PO SCH (09:29)
[2017-10-26] MEDS: GABAPENTIN 100 MG CAPSULE PO SCH (09:29)
[2017-10-26] MEDS: ASPIRIN EC 81 MG TABLET PO SCH (09:29)
[2017-10-26 12:27] VITALS: BP 103/52
== END 2017-10-26 14:17 | disposition hospice, home (50) | DRG 280 ==
LOC: N.ED 12:56 → N.EDINP 10-23 10:43 → N.CC 10-23 15:20 → N.TELES 10-25 06:38
PROVIDERS: ADMIT Internal Medicine Cardiovascular Disease; ATTEND Internal Medicine Cardiovascular Disease

== ENCOUNTER 2017-11-06 13:20 | Inpatient (IN) ==
[2017-11-06] MEDS ORDERED: ZALEPLON 5 MG CAPSULE PO PRN (13:25)
[2017-11-06] MEDS ORDERED: diphenhydrAMINE CAP 25 MG CAPSULE PO PRN (13:25)
[2017-11-06] MEDS ORDERED: ONDANSETRON 4 MG/2 ML VIAL IV PRN (13:25)
[2017-11-06] MEDS ORDERED: ACETAMINOPHEN 325 MG TABLET PO PRN (13:25)
[2017-11-06] MEDS ORDERED: MORPHINE 2 MG/1 ML SYRINGE IV PRN (13:25)
[2017-11-06] MEDS ORDERED: SODIUM CHLORIDE 0.9% 1,000 ML IV SCH (13:30)
[2017-11-06] MEDS: FERROUS SULFATE 325 MG TABLET PO SCH ×2 (15:13→22:26)
[2017-11-06] MEDS: ALBUTEROL/IPRATROPIUM 3 ML NEB RESP TX SCH ×2 (15:15→20:16)
[2017-11-06 16:16] LABS: Basophils % 0.2 % (0.0-0.8); Eosinophils # 0.1 10*3/uL (0.0-0.87); Eosinophils % 0.4 % (0.00-10.9); Hematocrit 40.2 VOL% (42.0-52.0); Hemoglobin 12.9 GM/DL (14.0-18.0); Immature Granulocytes % 0.4 %; Immature Granulocytes Absolute 0.06 #; Lymphocytes # 8.1 10*3/uL (1.4-4.0); Lymphocytes % 49.2 % (21.2-54.2); Mean Corpuscular HGB Conc 32.1 GM/DL (32-36); Mean Corpuscular Hemoglobin 29 PG (27-34); Mean Corpuscular Volume 91.4 FL (87-102); Mean Platelet Volume 11.3 FL (9.6-12.0); Monocytes # 0.6 10*3/uL (0.11-0.8); Monocytes % 3.9 % (1.7-12.7); Neutrophils # 7.5 10*3/uL (1.4-7.4); Neutrophils % 45.9 % (38.7-73.9); Platelet Count 327 T/CUMM (130-400); Red Cell Distribution Width 15.1 % (9.3-17.3); White Blood Count 16.4 T/CUMM (4-12)
[2017-11-06 16:37] LABS: Calcium 8.4 MG/DL (8.5-10.1); Osmolality,Calculated 300.8 MOS/KG (273-304); Potassium 3.6 MMOL/L (3.5-5.1)
[2017-11-06 16:38] LABS: Lymphocytes 48 % (20-55); Ovalocytes Slight; Poikilocytosis Slight; Segmented Neutrophils 48 % (50-85); Total Cells Counted 100
[2017-11-06 19:07] LABS: Apearance,Urine Slightly Hazy (Clear); Bacteria,Urine Occasional /HPF (Few); Bilirubin,Urine Negative (Negative); Blood, Urine Small mg/dL (Negative); Glucose,Urine (UA) Negative (Negative); Hyaline Casts,Urine 56 /LPF (0-3); Ketones,Urine Negative (Negative); Nitrite,Urine Negative (Negative); Protein,Urine Negative; RBC,Urine 11 /HPF (0-4); Squamous Epithelial Cell,Urine Occasional /HPF (0-10); Urine Color Yellow (Yellow); Urine Specific Gravity 1.011 (1.001-1.035); WBC,Urine 17 /HPF (0-6)
[2017-11-06] MEDS ORDERED: INSULIN GLARGINE 100 UNIT/ML SUBCUT SCH (21:00)
[2017-11-06] MEDS ORDERED: DOCUSATE SODIUM 100 MG CAPSULE PO SCH (21:00)
[2017-11-07] MEDS: ALBUTEROL/IPRATROPIUM 3 ML NEB RESP TX SCH ×2 (00:07→03:11)
[2017-11-07 06:17] VITALS: BP 84/55
[2017-11-07] MEDS ORDERED: ASPIRIN EC 81 MG TABLET PO SCH (09:00)
[2017-11-07] MEDS ORDERED: CLOPIDOGREL 75 MG TABLET PO SCH (09:00)
[2017-11-07] MEDS ORDERED: ISOSORBIDE MONONITRATE 60 MG TABLET PO SCH (09:00)
[2017-11-07] MEDS ORDERED: PANTOPRAZOLE 40 MG TABLET PO SCH (09:00)
== END 2017-11-07 04:59 | disposition expired | DRG 813 ==
LOC: N.2E 13:45
PROVIDERS: ADMIT Internal Medicine Cardiovascular Disease; ATTEND Internal Medicine Cardiovascular Disease